=== PATIENT | male | born 1935 | race Caucasian/White ===

== ENCOUNTER 2017-02-19 15:09 | Inpatient (IN) | payer OTHER ==
--- NOTE | 2017-02-19 15:17 | PDOC ---
Rapid Medical Evaluation Chief Complaint: Shortness of Breath Time Seen by Provider: 02/19/17 15:13 Medical Evaluation: Allergies Allergy/AdvReac Type Severity Reaction Status Date / Time Penicillins Allergy Rash Verified 02/19/17 15:12 Vital Signs Temp Pulse Resp BP Pulse Ox 97.6 F 76 18 128/74 100 02/19/17 15:12 02/19/17 15:12 02/19/17 15:12 02/19/17 15:12 02/19/17 15:12 02/19/17 15:16 Pt presents to the ED: cough x 2 weeks , recent cxr right pleural effusion, not feeling better after abx Pt on brief exam:VSS, rll coarse breath sounds Pt ordered for: none Pt to proceed to the Emergency Dept Discharge Disposition - Diagnosis Cough - Referrals - Patient Instructions - Post Discharge Activity
--- NOTE | 2017-02-19 20:14 | PDOC ---
History of Present Illness - General History Source: Patient Exam Limitations: No Limitations - History of Present Illness Initial Comments: 02/19/17 20:45 The patient is an 81 year old male with a significant PMH of AFIB, COPD, past pleural effusion, tricuspid regurgitation, HTN, and Leukemia who presents to the emergency department with 2 weeks of worsening productive cough. The patient reports an onset of cough 2 weeks ago productive of occasional yellow sputum. He reports his cough has become more persistent since with more yellow sputum. The patient also notes associated shortness of breath only when he coughs. The patient reports receiving a CXR on 02/15 which showed small to moderate right pleural effusion of the right basilar region...interval resolution of a left pleural effusion. The patient reports being admitted last year for similar symptoms The patient denies chest pain, headache and dizziness. Denies fever, chills, nausea, vomit, diarrhea and constipation. Denies dysuria, frequency, urgency and hematuria. Allergies: Penicillins Past surgical history: None reported. Social history: Former smoker. No reported alcohol or drug use. PCP: Dr. Jeyson Ospina <Zay Upton - Last Filed: 02/19/17 21:37> - General History Source: Patient <JoshAustin massey - Last Filed: 02/19/17 21:43> - General Chief Complaint: Shortness of Breath Stated Complaint: CONGESTION Time Seen by Provider: 02/19/17 15:13 Past History <Zay Upton - Last Filed: 02/19/17 21:37> - Past Medical History Anemia: Yes Cancer: (CLL) Cardiac Disorders: Yes (A Fib) COPD: Yes CHF: No HTN: Yes - Surgical History Abdominal Surgery: Yes (hernia) - Suicide/Smoking/Psychosocial Hx Smoking Status: Yes Smoking History: Former smoker Have you smoked in the past 12 months: No Number of Cigarettes Smoked Daily: 0 Information on smoking cessation initiated: No Hx Alcohol Use: No Drug/Substance Use Hx: No Substance Use Type: None Hx Substance Use Treatment: No <Austin Rodriguez - Last Filed: 02/19/17 21:43> - Past Medical History Allergies/Adverse Reactions: Allergies Allergy/AdvReac Type Severity Reaction Status Date / Time Penicillins Allergy Rash Verified 02/19/17 15:12 Home Medications: Ambulatory Orders Sotalol HCl [Betapace -] 80 mg PO BID #60 tablet 09/11/15 Rivaroxaban [Xarelto -] 20 mg PO DAILY #10 tablet 09/13/15 Montelukast Na [Singulair -] 10 mg PO HS 10/17/15 Docusate Sodium [Colace -] 100 mg PO BID #180 capsule 10/28/15 Furosemide [Lasix -] 40 mg PO DAILY #90 tablet 10/28/15 Ramipril [Altace] 2.5 mg PO DAILY #90 capsule 10/28/15 Spironolactone [Aldactone -] 25 mg PO DAILY #90 tablet 10/28/15 Review of Systems - Review of Systems Able to Perform ROS?: Yes Comments:: 02/19/17 20:45 CONSTITUTIONAL: Absent: fever, chills, diaphoresis, generalized weakness, malaise, loss of appetite HEENT: Absent: rhinorrhea, nasal congestion, throat pain, throat swelling, difficulty swallowing, mouth swelling, ear pain, eye pain, visual Changes CARDIOVASCULAR: Absent: chest pain, syncope, palpitations, irregular heart rate, lightheadedness , peripheral edema RESPIRATORY: (+) Cough with productive yellow sputum. (+) Shortness of breath only with cough. Absent: dyspnea with exertion, orthopnea, wheezing, stridor, hemoptysis GASTROINTESTINAL: Absent: abdominal pain, abdominal distension, nausea, vomiting, diarrhea, constipation, melena, hematochezia GENITOURINARY: Absent: dysuria, frequency, urgency, hesitancy, hematuria, flank pain, genital pain MUSCULOSKELETAL: Absent: myalgia, arthralgia, joint swelling SKIN: Absent: rash, itching, pallor HEMATOLOGIC/IMMUNOLOGIC: Absent: easy bleeding, easy bruising, lymphadenopathy, frequent infections ENDOCRINE: Absent: unexplained weight gain, unexplained weight loss, heat intolerance, cold intolerance NEUROLOGIC: Absent: headache, focal weakness or paresthesias, dizziness, unsteady gait, seizure, mental status changes, bladder or bowel incontinence PSYCHIATRIC: Absent: anxiety, depression, suicidal or homicidal ideation, hallucinations. <Zay Upton - Last Filed: 02/19/17 21:37> *Physical Exam - Vital Signs Last Vital Signs Temp Pulse Resp BP Pulse Ox 97.6 F 76 18 128/74 100 02/19/17 15:12 02/19/17 15:12 02/19/17 15:12 02/19/17 15:12 02/19/17 15:12 - Physical Exam Comments: 02/19/17 20:46 GENERAL: Well developed, well nourished. Awake and alert. No acute distress. HEENT: Normocephalic, atraumatic. PERRLA, EOMI. No conjunctival pallor. Sclera are non- icteric. Moist mucous membranes. Oropharynx is clear. NECK: Supple. Full ROM. No JVD. Carotid pulses 2+ and symmetric, without bruits. No thyromegaly. No lymphadenopathy. CARDIOVASCULAR: Regular rate and rhythm. No murmurs, rubs, or gallops. Distal pulses are 2+ and symmetric. PULMONARY: (+) Decreased breath sounds bilaterally, more on right. No evidence of respiratory distress. Lungs clear to auscultation bilaterally. No wheezing, rales or rhonchi. ABDOMINAL: Soft. Non-tender. Non-distended. No rebound or guarding. No organomegaly. Normoactive bowel sounds. MUSCULOSKELETAL Normal range of motion at all joints. No bony deformities or tenderness. No CVA tenderness. EXTREMITIES: No cyanosis. No clubbing. No edema. No calf tenderness. SKIN: Warm and dry. Normal capillary refill. No rashes. No jaundice. NEUROLOGICAL: Alert, awake, appropriate. Cranial nerves 2-12 intact. No deficits to light touch and temperature in face, upper extremities and lower extremities. No motor deficits in the in face, upper extremities and lower extremities. Normoreflexic in the upper and lower extremities. Normal speech. Toes are down- going bilaterally. PSYCHIATRIC: Cooperative. Good eye contact. Appropriate mood and affect. <Zay Upton - Last Filed: 02/19/17 21:37> - Vital Signs Last Vital Signs Temp Pulse Resp BP Pulse Ox 97.6 F 76 18 128/74 100 02/19/17 15:12 02/19/17 15:12 02/19/17 15:12 02/19/17 15:12 02/19/17 15:12 <Austin Rodriguez - Last Filed: 02/19/17 21:43> ED Treatment Course - Consult/PCP Time Called: 21:35 Case discussed with personal care physician: Jeyson Ospina <Zay Upton - Last Filed: 02/19/17 21:37> Medical Decision Making - Medical Decision Making 02/19/17 21:41 Dr. Rodriguez: The scribe's documentation has been prepared under my direction and personally reviewed by me in its entirery. I confirm that the note above accurately reflects all work, treatment, procedures, and medical decision making performed by me. patient with Right-sided pleural effusion. Patient has been treated with ABx with no resolution. Pt to be admitted to [facility]. <Austin Rodriguez - Last Filed: 02/19/17 21:43> *DC/Admit/Observation/Transfer - Attestations Scribe Attestion: 02/19/17 20:46 Documentation prepared by Zay Upton, acting as mobile paramedical examiner for Austin Rodriguez DO. <Zay Upton - Last Filed: 02/19/17 21:37> - Discharge Dispostion Admit: Yes <Austin Rodriguez - Last Filed: 02/19/17 21:43> Diagnosis at time of Disposition: Cough, Pleural effusion, CLL (chronic lymphocytic leukemia) - Discharge Dispostion Condition at time of disposition: Stable - Referrals Referrals: Jeyson Ospina MD [Primary Care Provider] - - Patient Instructions - Post Discharge Activity
[2017-02-19 21:46] LABS: HEMATOCRIT 35.8 % (35.4-49); HEMOGLOBIN 11.6 GM/dL (11.7-16.9); MCH 31.7 pg (25.7-33.7); MCHC 32.5 g/dl (32.0-35.9); MEAN CELL VOLUME 97.4 fl (80-96); MEAN PLT VOLUME 7.2 fl (7.5-11.1); PLATELET COUNT 229 K/MM3 (134-434); RBC 3.68 M/mm3 (4.00-5.60); RDW 17.5 % (11.9-15.9); WHITE BLOOD COUNT 26.6 K/mm3 (4.0-10.0)
[2017-02-19 22:04] LABS: INR 1.48 (0.82-1.09); PROTHROMBIN TIME (PATIENT) 16.7 SEC (9.98-11.88)
[2017-02-19 22:05] LABS: ALBUMIN 3.4 g/dl (3.4-5.0); ANION GAP 9 (8-16); BILIRUBIN,TOTAL 0.6 mg/dL (0.2-1.0); BLOOD UREA NITROGEN 24 mg/dL (7-18); CALCIUM 8.9 mg/dL (8.5-10.1); CHLORIDE 104 mmol/L (98-107); CO2 27 mmol/L (21-32); CREATININE 0.7 mg/dL (0.7-1.3); GLUCOSE,RANDOM 85 mg/dL (74-106); MAGNESIUM 2.2 mg/dL (1.8-2.4); POTASSIUM 3.9 mmol/L (3.5-5.1); SGOT/AST 16 U/L (15-37); SGPT/ALT 16 U/L (12-78); SODIUM 140 mmol/L (136-145); TOT PROT 7.2 g/dl (6.4-8.2)
[2017-02-19 22:08] LABS: ALK PHOS 98 U/L (45-117); N-TERMINAL BNP 509.73 pg/ml (5-450)
[2017-02-19 22:14] LABS: PLATELET ESTIMATE ADEQUATE; SMUDGE CELLS 11
[2017-02-20 02:29] VITALS: BMI 21.0
[2017-02-20 08:39] LABS: ANION GAP 7 (8-16); BLOOD UREA NITROGEN 22 mg/dL (7-18); CALCIUM 8.5 mg/dL (8.5-10.1); CHLORIDE 105 mmol/L (98-107); CO2 27 mmol/L (21-32); CREATININE 0.6 mg/dL (0.7-1.3); GLUCOSE,RANDOM 90 mg/dL (74-106); POTASSIUM 4.1 mmol/L (3.5-5.1); SODIUM 139 mmol/L (136-145)
[2017-02-20 09:18] LABS: HEMOGLOBIN 11.3 GM/dL (11.7-16.9); MCH 31.4 pg (25.7-33.7); MCHC 32.2 g/dl (32.0-35.9); MEAN CELL VOLUME 97.4 fl (80-96); MEAN PLT VOLUME 7.7 fl (7.5-11.1); PLATELET COUNT 228 K/MM3 (134-434); RBC 3.59 M/mm3 (4.00-5.60); RDW 17.3 % (11.9-15.9); WHITE BLOOD COUNT 26.4 K/mm3 (4.0-10.0)
[2017-02-20] MEDS ORDERED: RIVAROXABAN 20 MG TABLET PO SCH (10:00)
[2017-02-20] MEDS: SOTALOL HCL 80 MG TABLET (FP) PO SCH (10:00)
[2017-02-20] MEDS ORDERED: PT OWN MED DRAWER 7, Y5N ONE ×2 (10:40→19:58)
[2017-02-20 11:45] LABS: URINE APPEARANCE SLCLOUDY; URINE BILIRUBIN NEGATIVE (NEGATIVE); URINE BLOOD 1+ (NEGATIVE); URINE COLOR DKYELLOW; URINE GLUCOSE (UA) NEGATIVE (NEGATIVE); URINE KETONE NEGATIVE (NEGATIVE); URINE LEUK ESTERASE NEGATIVE (NEGATIVE); URINE NITRITE NEGATIVE (NEGATIVE); URINE PROTEIN NEGATIVE (NEGATIVE); URINE UROBILINOGEN NEGATIVE mg/dL (0.2-1.0)
--- NOTE | 2017-02-20 13:06 | EKG ---
Test Reason : Blood Pressure : / mmHG Vent. Rate : 067 BPM Atrial Rate : 067 BPM P-R Int : 232 ms QRS Dur : 104 ms QT Int : 416 ms P-R-T Axes : 068 001 041 degrees QTc Int : 439 ms SINUS RHYTHM WITH 1ST DEGREE A-V BLOCK INCOMPLETE RIGHT BUNDLE BRANCH BLOCK SEPTAL INFARCT (CITED ON OR BEFORE 18-OCT-2015) ABNORMAL ECG WHEN COMPARED WITH ECG OF 18-OCT-2015 10:05, PREMATURE ATRIAL COMPLEXES ARE NO LONGER PRESENT T WAVE AMPLITUDE HAS INCREASED IN ANTEROLATERAL LEADS Confirmed by SELINA COTA, MATEUSZ ([id number]) on 02/20/2017 1:06:21 PM Referred By: Confirmed By:MATEUSZ MARKS MD
[2017-02-20 13:25] LABS: ANISOCYTOSIS 3+; MACROCYTOSIS 0; PLATELET ESTIMATE NORMAL
[2017-02-20] MEDS ORDERED: LEVOFLOXACIN 500 MG IVPB 500 MG/100 ML BAG IVPB ONE (13:45)
--- NOTE | 2017-02-20 13:52 | HP ---
Admitting History and Physical - Primary Care Physician PCP: Jeyson Ospina - Admission Chief Complaint: Cough History of Present Illness: Pt was seen last week in the office for productive cough and CHERRY, had CXR ( + for Pl. effusion); pt was started on PO Levaquin (500 mg daily). Pt yesterday morning starting to cough more and came to ER [facility] was admitted. History Source: Patient - Past Medical History Cardiovascular: Yes: AFIB (on AC), CHF Pulmonary: Yes: COPD. No: Asthma, O2 Dependent, Previously Intubated Heme/Onc: Yes: Cancer (CLL; per pt. latest WBC 60K) - Smoking History Smoking history: Former smoker Have you smoked in the past 12 months: No Aproximately how many cigarettes per day: 0 - Alcohol/Substance Use Hx Alcohol Use: No - Social History History of Recent Travel: No Home Medications - Allergies Allergies/Adverse Reactions: Allergies Allergy/AdvReac Type Severity Reaction Status Date / Time Penicillins Allergy Rash Verified 02/19/17 15:12 - Home Medications Home Medications: Ambulatory Orders Rivaroxaban [Xarelto -] 20 mg PO DAILY #10 tablet 09/13/15 Ramipril [Altace] 2.5 mg PO DAILY #90 capsule 10/28/15 Sotalol HCl [Betapace -] 80 mg PO DAILY 02/19/17 Review of Systems - Review of Systems Constitutional: denies: Chills, Fever Eyes: denies: Blurred Vision, Double Vision, Recent Change in Vision HENT: denies: Difficult Swallowing, Ear Discharge, Ear Pain, Nasal Congestion, Throat Pain Neck: denies: Stiffness, Swollen Glands, Tenderness Cardiovascular: denies: Chest Pain, Edema, Palpitations Respiratory: reports: Cough, SOB on Exertion. denies: Wheezing Gastrointestinal: denies: Abdominal Pain, Nausea, Vomiting Genitourinary: denies: Burning, Dysuria Musculoskeletal: denies: Back Pain, Joint Swelling Integumentary: denies: Bruising, Rash Neurological: denies: Change in LOC, Change in Speech, Numbness Endocrine: denies: Excessive Sweating, Intolerance to Cold Hematology/Lymphatic: denies: Easily Bruised, Excessive Bleeding Psychiatric: denies: Anxiety, Depression Physical Examination Vital Signs: Vital Signs Temperature 98.3 F 02/20/17 10:36 Pulse Rate 74 02/20/17 10:36 Respiratory Rate 19 02/20/17 10:36 Blood Pressure 105/53 02/20/17 10:36 O2 Sat by Pulse Oximetry (%) 100 02/20/17 09:00 Constitutional: Yes: No Distress, Calm Eyes: Yes: Conjunctiva Clear, EOM Intact, PERRL HENT: Yes: Normocephalic. No: Drooling, Pharyngeal Erythema, Rhinnorhea Neck: Yes: Trachea Midline. No: Lymphadenopathy Cardiovascular: Yes: Regular Rate and Rhythm, S1, S2 Respiratory: Yes: Regular, Other (decrease BS at right base and 1/3 up) Gastrointestinal: Yes: Normal Bowel Sounds, Soft. No: Tenderness ...Rectal Exam: Yes: Deferred Renal/: No: CVA Tenderness - Left, CVA Tenderness - Right Edema: No Integumentary: No: Bruising, Erythema Neurological: Yes: Alert, Oriented, Other (motor and sensory intact in UE/ LE/ face) Psychiatric: Yes: Alert, Oriented Labs: CBC, BMP 02/20/17 07:45 02/20/17 07:45 Imaging - Results Chest X-ray: Report Reviewed Cat Scan: Report Reviewed Problem List - Problems (1) Pneumonia Code(s): J18.9 - PNEUMONIA, UNSPECIFIED ORGANISM (2) Pleural effusion Code(s): J90 - PLEURAL EFFUSION, NOT ELSEWHERE CLASSIFIED (3) Atrial fibrillation Code(s): I48.91 - UNSPECIFIED ATRIAL FIBRILLATION Assessment/Plan Chest CT scan: + Pl effusion, + consolidation, + chestLA Pulmonary Consult; case was d/w Dr. Contreras; needs thoracentesis; to stop Xarelto ; add Heparin IV in AM ID consult IV abtx OOB as tolerated
--- NOTE | 2017-02-20 14:01 | PN ---
Progress Note (short form) - Note Progress Note: PULMONARY CONSULTATION DICTATED 02/20/17 IMP RLL CONSOLIDATION/EFFUSION ?PNEUMONIA R PLEURAL EFFUSION CLL AFIB ASHD HTN PLAN ANTIBIOTICS CULTURES DIAGNOSTIC THORACENTESIS ANTI-TUSSIVES DR MANRIQUEZ Problem List - Problems (1) Atrial fibrillation Code(s): I48.91 - UNSPECIFIED ATRIAL FIBRILLATION (2) CLL (chronic lymphocytic leukemia) Code(s): C91.10 - CHRONIC LYMPHOCYTIC LEUK OF B-CELL TYPE NOT ACHIEVE REMIS (3) Cough Code(s): R05 - COUGH (4) Anemia Code(s): D64.9 - ANEMIA, UNSPECIFIED (5) Lymphocytic leukemia Code(s): C91.90 - LYMPHOID LEUKEMIA, UNSPECIFIED NOT HAVING ACHIEVED REMISSION (6) SOB (shortness of breath) Code(s): R06.02 - SHORTNESS OF BREATH (7) Tricuspid regurgitation Code(s): I07.1 - RHEUMATIC TRICUSPID INSUFFICIENCY Qualifiers: Cardiac valve disease etiology: nonrheumatic Qualified Code(s): I36.1 - Nonrheumatic tricuspid (valve) insufficiency
[2017-02-20 14:05] LABS: CALCIUM OXALATE CRYSTALS RARE /hpf (NONE SEEN); EPI CELLS RARE /HPF (FEW); URINE MUCUS RARE
--- NOTE | 2017-02-20 17:09 | CONS ---
DATE OF CONSULTATION: 02/20/2017 REFERRING PHYSICIAN: Jeyson Ospina MD The patient is an 81-year-old white male, past medical of atrial fibrillation, COPD, history of pleural effusion, tricuspid regurgitation, hypertension, leukemia chronic lymphocytic, not on any medication, admitted to [facility] with complaint of 2-week history of increasing cough productive of yellow sputum. The patient states he developed a cough a couple of weeks ago. At the time, he was placed on Levaquin. Despite these measures, he started developing increasing shortness of breath as well as coughing. Chest x-ray performed February 15, which shows small to moderate right pleural effusion. He was advised hospitalization but did not want to be hospitalized secondary to the [place] holiday. He was admitted yesterday with the above complaints. He denies any fevers, chills, nausea, vomiting, diaphoresis. Denies hemoptysis. 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 Denies orthopnea or PND. Past medical history, again, includes hypertension, atrial fibrillation, COPD, pleural effusion, tricuspid regurgitation, hypertension, and chronic lymphocytic leukemia. REVIEW OF SYSTEMS: No orthopnea, no PND. Positive cough, positive mild shortness of breath. No chest pain, no palpitation, no fevers, no chills, no hemoptysis, no abdominal pain. Medications prior to admission include Betapace, Xarelto, Singulair, Colace, Lasix, Aldactone, and Altace. Current medications include Betapace, Xarelto, and Levaquin. PHYSICAL EXAMINATION: General: The patient is a thin white male, awake, alert, in no acute distress. Vital Signs: He is afebrile. Blood pressure 105/53. Respiratory rate is 19. O2 saturation is 100% on room air. HEENT: Normocephalic, atraumatic. Neck: Supple. Heart: Irregular. Normal S1, S2. Chest: Diminished breath sounds on the right, one-third up. Abdomen: Soft. Bowel sounds positive. Extremities: No cyanosis, edema. LABORATORY DATA: WBC 26.4, hemoglobin 11.3, hematocrit 35, platelet count of 228,000, INR is 1.48. BUN 22, creatinine 0.6. Chest CT: Borderline lymphadenopathy, mediastinal adenopathy. There is a right lower lobe consolidation, atelectasis, and small to moderate right pleural effusion. IMPRESSION: 1. Cough, chest congestion, rule out possible pneumonia. 2. Right pleural effusion, etiology to be determined. Rule out possible parapneumonic effusion, rule out possible malignant effusion. 3. Chronic lymphocytic leukemia. 4. Atrial fibrillation. 5. Hypertension. PLAN: Continue antibiotic therapy. Cultures. Schedule for thoracentesis with ultrasound guidance. Hold Xarelto. Further recommendations to follow, following thoracentesis. JUAN A MANRIQUEZ M.D. [facility]SE/[id number]
--- NOTE | 2017-02-20 18:27 | PN ---
Progress Note (short form) - Note Progress Note: ID consult dictated imp/reccd 81 year old man PMH CLL admitted from home with cough and pneumonia he has been coughing for about 10 days started levaquin last week now day #4 persistent cough, no hemoptysis now productive no fevers no nausea or vomiting no travel UTD with vaccines he looks well chest CT with RLL consolidation /atelectasis and right effusion anc over 5000 pen allergy rash as a child RLL pneumonia with effusion- for thoracentesis pen allergy start rocephin check legionella/pneumococcal antigen sputum culture f/u blood cultures history of CLL Problem List - Problems (1) Pneumonia Code(s): J18.9 - PNEUMONIA, UNSPECIFIED ORGANISM (2) Pleural effusion Code(s): J90 - PLEURAL EFFUSION, NOT ELSEWHERE CLASSIFIED (3) CLL (chronic lymphocytic leukemia) Code(s): C91.10 - CHRONIC LYMPHOCYTIC LEUK OF B-CELL TYPE NOT ACHIEVE REMIS (4) Penicillin allergy Code(s): Z88.0 - ALLERGY STATUS TO PENICILLIN
--- NOTE | 2017-02-20 19:35 | CONS ---
INFECTIOUS DISEASE CONSULTATION DATE OF CONSULTATION: DATE OF DICTATION: 02/20/2017 REQUESTING PHYSICIAN: Jeyson Ospina MD HISTORY OF PRESENT ILLNESS: This is an 81-year-old man with CLL. He has a history of persistent atrial fibrillation, hypertension, hyperlipidemia. He reports he has had pleural effusions in the past. About 10 days ago, he started having a cough. He had no fevers or chills. He saw Dr. Ospina and was started on Levaquin which he has taken for 4 days. Yesterday, he noted the cough became more productive of some yellowish sputum. There is no hemoptysis. He grew concerned and came to the ER. He is not short of breath. He has had no fever. He does report he has had bilateral pleural effusions in the past, about a year ago. PAST MEDICAL HISTORY: Notable for CLL. He has a history of atrial fibrillation, CHF, and COPD. ALLERGIES: He is allergic to PENICILLIN which is manifested as a rash on his arm as a child. MEDICATIONS AT HOME: Include Xarelto, Ramipril, and sotalol. SOCIAL HISTORY: He is a former smoker. He stopped 40 years ago. No history of any substance use. He lives alone. He had no workplace exposures for any COPD. There is no history of any recent travel or sick contacts. He reports being up to date on his vaccines. REVIEW OF SYSTEMS: He has no sore throat. There have been no fevers or chills. He has had no nausea, vomiting, diarrhea, or dysuria. PHYSICAL EXAMINATION: General: He is awake and alert. Vital Signs: Temperature is 98.1, pulse of 73, blood pressure 104/52, respiratory rate is 20. He is saturating 100% on room air. HEENT: He is normocephalic. His eyes are anicteric. Neck: Supple. Lungs: Diminished breath sounds at the right base. Heart: Regular rate and rhythm. Abdomen: Soft, nontender. Skin: He has no skin rash. He has no adenopathy. DIAGNOSTIC DATA: His white count is 26.4. ANC of over 5000, 5808. Hemoglobin 11.8. Platelets are 228. His BUN and creatinine are normal, 7 and 0.6. LFTs are normal as well. Urinalysis is negative. CAT scan of the chest reveals a right lower lobe consolidation, atelectasis with an accompanying right effusion. In summary, this is a well-appearing, 81-year-old man with chronic lymphocytic leukemia, admitted with: 1. A right lower lobe pneumonia with effusion, for thoracentesis tomorrow. PENICILLIN allergy manifested by rash. He has been on Levaquin for 4 days. Suggest we switch to ceftriaxone to cover for pneumococcus. He does not appear ill enough to have staphylococcus pneumonia. Would check a legionella and pneumococcal antigen, sputum cultures. Follow up his blood cultures. He has been scheduled by Pulmonary for a thoracentesis in the morning. 2. History of chronic lymphocytic leukemia. ANC of greater than 5000. Margarita [id number]
[2017-02-21 08:01] LABS: HEMATOCRIT 36.2 % (35.4-49); HEMOGLOBIN 11.6 GM/dL (11.7-16.9); MCH 31.1 pg (25.7-33.7); MCHC 32.1 g/dl (32.0-35.9); MEAN PLT VOLUME 7.3 fl (7.5-11.1); PLATELET COUNT 223 K/MM3 (134-434); RBC 3.74 M/mm3 (4.00-5.60); RDW 17.4 % (11.9-15.9); WHITE BLOOD COUNT 22.3 K/mm3 (4.0-10.0)
[2017-02-21 08:33] LABS: CHLORIDE 106 mmol/L (98-107); POTASSIUM 4.3 mmol/L (3.5-5.1); SODIUM 140 mmol/L (136-145)
[2017-02-21 08:37] LABS: ANION GAP 6 (8-16); BLOOD UREA NITROGEN 26 mg/dL (7-18); CALCIUM 8.4 mg/dL (8.5-10.1); CO2 28 mmol/L (21-32); CREATININE 0.6 mg/dL (0.7-1.3); GLUCOSE,RANDOM 88 mg/dL (74-106)
[2017-02-21] MEDS ORDERED: cefTRIAXone 1 GM/50 ML BAG (PRE-DOCKED) IVPB SCH (10:00)
[2017-02-21] MEDS ORDERED: PT OWN MED DRAWER 7, Y5N ONE (10:09)
[2017-02-21] MEDS: SOTALOL HCL 80 MG TABLET (FP) PO SCH (10:20)
[2017-02-21] MEDS: CEFTRIAXONE 1 G/50 ML PREMIX 50 ML IVPB SCH (10:21)
--- NOTE | 2017-02-21 14:09 | PN ---
Progress Note (short form) - Note Progress Note: awaiting thoracentesis less cough no chest pain no fever Vital Signs Period Temp Pulse Resp BP Sys/Marcum Pulse Ox Last 24 Hr 97 F-98.5 F 73-87 18-20 104-133/46-65 cor-rrr lungs decreased bs right base (improved from yesterday) abd soft,nt ext no edema CBC, BMP 02/21/17 06:24 02/21/17 06:24 Microbiology 02/19/17 21:40 Blood Culture - Preliminary Blood - Peripheral Venous NO GROWTH OBTAINED AFTER 24 HOURS, INCUBATION TO CONTINUE FOR 4 DAYS. 02/19/17 21:40 Blood Culture - Preliminary Blood - Peripheral Venous NO GROWTH OBTAINED AFTER 24 HOURS, INCUBATION TO CONTINUE FOR 4 DAYS. a/p 81 year old man PMH CLL admitted from home with cough and pneumonia RLL pneumonia with effusion- for thoracentesis pen allergy, s/p levaquin for 4 days now rocephin day #1 check legionella/pneumococcal antigen sputum culture f/u blood cultures history of CLL Problem List - Problems (1) Pneumonia Code(s): J18.9 - PNEUMONIA, UNSPECIFIED ORGANISM (2) Pleural effusion Code(s): J90 - PLEURAL EFFUSION, NOT ELSEWHERE CLASSIFIED (3) CLL (chronic lymphocytic leukemia) Code(s): C91.10 - CHRONIC LYMPHOCYTIC LEUK OF B-CELL TYPE NOT ACHIEVE REMIS (4) Penicillin allergy Code(s): Z88.0 - ALLERGY STATUS TO PENICILLIN
--- NOTE | 2017-02-21 16:05 | PN ---
Progress Note, Physician History of Present Illness: PULMONARY ALERT,AMBULATING,LESS COUGH,LESS DYSPNEIC - Current Medication List Current Medications: Active Medications CEFTRIAXONE 1 G/50 ML PREMIX (Ceftriaxone 1 Gm-D5w Bag) 50 mls @ 100 mls/hr IVPB DAILY [facility] Last Admin: 02/21/17 10:21 Dose: 100 mls/hr Sotalol HCl (Betapace -) 80 mg PO DAILY [facility] Last Admin: 02/21/17 10:20 Dose: 80 mg - Objective Vital Signs: Vital Signs Temperature 97 F L 02/21/17 10:00 Pulse Rate 87 02/21/17 10:00 Respiratory Rate 18 02/21/17 10:00 Blood Pressure 133/65 02/21/17 10:00 O2 Sat by Pulse Oximetry (%) 100 02/20/17 09:00 Constitutional: Yes: Well Nourished, Calm Eyes: Yes: WNL HENT: Yes: WNL Neck: Yes: WNL Cardiovascular: Yes: Pulse Irregular, S1, S2 Respiratory: Yes: Diminished Gastrointestinal: Yes: Normal Bowel Sounds, Soft Labs: CBC, BMP 02/21/17 06:24 02/21/17 06:24 INR, PTT INR 1.48 (0.82-1.09) H 02/19/17 21:35 Problem List - Problems (1) Atrial fibrillation Code(s): I48.91 - UNSPECIFIED ATRIAL FIBRILLATION (2) CLL (chronic lymphocytic leukemia) Code(s): C91.10 - CHRONIC LYMPHOCYTIC LEUK OF B-CELL TYPE NOT ACHIEVE REMIS (3) Cough Code(s): R05 - COUGH (4) Anemia Code(s): D64.9 - ANEMIA, UNSPECIFIED (5) Lymphocytic leukemia Code(s): C91.90 - LYMPHOID LEUKEMIA, UNSPECIFIED NOT HAVING ACHIEVED REMISSION (6) SOB (shortness of breath) Code(s): R06.02 - SHORTNESS OF BREATH (7) Tricuspid regurgitation Code(s): I07.1 - RHEUMATIC TRICUSPID INSUFFICIENCY Qualifiers: Cardiac valve disease etiology: nonrheumatic Qualified Code(s): I36.1 - Nonrheumatic tricuspid (valve) insufficiency Assessment/Plan IMP RLL CONSOLIDATION/EFFUSION ?PNEUMONIA R PLEURAL EFFUSION CLL AFIB ASHD HTN PLAN ANTIBIOTICS CULTURES DIAGNOSTIC THORACENTESIS IN AM ANTI-TUSSIVES DR MANRIQUEZ Problem List - Problems (1) Atrial fibrillation Code(s): I48.91 - UNSPECIFIED ATRIAL FIBRILLATION (2) CLL (chronic lymphocytic leukemia) Code(s): C91.10 - CHRONIC LYMPHOCYTIC LEUK OF B-CELL TYPE NOT ACHIEVE REMIS (3) Cough Code(s): R05 - COUGH (4) Anemia Code(s): D64.9 - ANEMIA, UNSPECIFIED (5) Lymphocytic leukemia Code(s): C91.90 - LYMPHOID LEUKEMIA, UNSPECIFIED NOT HAVING ACHIEVED REMISSION (6) SOB (shortness of breath) Code(s): R06.02 - SHORTNESS OF BREATH (7) Tricuspid regurgitation Code(s): I07.1 - RHEUMATIC TRICUSPID INSUFFICIENCY Qualifiers: Cardiac valve disease etiology: nonrheumatic Qualified Code(s): I36.1 - Nonrheumatic tricuspid (valve) insufficiency
[2017-02-21] MEDS ORDERED: HEPARIN NA (PORCINE) 5,000 UNITS/ML 1ML VIAL IVPUSH PRN ×2 (16:07)
[2017-02-21] MEDS: HEPARIN SOD,PORK IN 0.45% NACL 25,000 UNIT/500 ML INFUS.BAG IVPB SCH (17:52)
--- NOTE | 2017-02-21 21:33 | PN ---
Progress Note, Physician History of Present Illness: Pt with improvement in cough; pt w/o CP, palp, abd pain, diarrhea. - Current Medication List Current Medications: Active Medications Heparin Sodium (Porcine) (Heparin -) 1,000 unit IVPUSH PRN PRN PRN Reason: Heparin Heparin Sodium (Porcine) (Heparin -) 5,000 unit IVPUSH PRN PRN PRN Reason: Heparin CEFTRIAXONE 1 G/50 ML PREMIX (Ceftriaxone 1 Gm-D5w Bag) 50 mls @ 100 mls/hr IVPB DAILY RAMONE Last Admin: 02/21/17 10:21 Dose: 100 mls/hr HEPARIN SOD,PORK IN 0.45% NACL (Heparin-1/2ns 25,000 Units/500) 25,000 unit in 500 mls @ 16 mls/hr IVPB TITR RAMONE; 800 UNITS/HR PRN Reason: Protocol Last Admin: 02/21/17 17:52 Dose: 800 units/hr, 16 mls/hr Sotalol HCl (Betapace -) 80 mg PO DAILY RAMONE Last Admin: 02/21/17 10:20 Dose: 80 mg - Objective Vital Signs: Vital Signs Temperature 98.3 F 02/21/17 19:00 Pulse Rate 72 02/21/17 19:00 Respiratory Rate 18 02/21/17 19:00 Blood Pressure 114/55 02/21/17 19:00 O2 Sat by Pulse Oximetry (%) 98 02/21/17 09:00 Constitutional: Yes: No Distress, Calm Cardiovascular: Yes: Regular Rate and Rhythm, S1, S2 Respiratory: Yes: Regular, Other (decreased BS at R bases and 1/3 up) Gastrointestinal: Yes: Normal Bowel Sounds, Soft. No: Tenderness Edema: No Neurological: Yes: Alert, Oriented Labs: CBC, BMP 02/21/17 06:24 02/21/17 06:24 INR, PTT INR 1.48 (0.82-1.09) H 02/19/17 21:35 Problem List - Problems (1) Pneumonia Code(s): J18.9 - PNEUMONIA, UNSPECIFIED ORGANISM (2) Pleural effusion Code(s): J90 - PLEURAL EFFUSION, NOT ELSEWHERE CLASSIFIED (3) Atrial fibrillation Code(s): I48.91 - UNSPECIFIED ATRIAL FIBRILLATION (4) CLL (chronic lymphocytic leukemia) Code(s): C91.10 - CHRONIC LYMPHOCYTIC LEUK OF B-CELL TYPE NOT ACHIEVE REMIS (5) Penicillin allergy Code(s): Z88.0 - ALLERGY STATUS TO PENICILLIN Assessment/Plan Chest CT scan: + Pl effusion, + consolidation, + chestLA Pulmonary Consult and ID consult : appreciated IV abtx (Ceftriaxone) For thoracentasis in AM OOB as tolerated. Case was d/w pt's nurse.
[2017-02-22] MEDS: HEPARIN SOD,PORK IN 0.45% NACL 25,000 UNIT/500 ML INFUS.BAG IVPB SCH ×2 (02:03→21:35)
[2017-02-22] MEDS ORDERED: PT OWN MED DRAWER 7, Y5N ONE (09:37)
[2017-02-22 09:46] LABS: ALBUMIN 3.2 g/dl (3.4-5.0); ALK PHOS 99 U/L (45-117); ANION GAP 8 (8-16); BILIRUBIN,TOTAL 0.4 mg/dL (0.2-1.0); BLOOD UREA NITROGEN 22 mg/dL (7-18); CALCIUM 8.1 mg/dL (8.5-10.1); CHLORIDE 107 mmol/L (98-107); CO2 25 mmol/L (21-32); CREATININE 0.6 mg/dL (0.7-1.3); GLUCOSE,RANDOM 91 mg/dL (74-106); SGOT/AST 15 U/L (15-37); SGPT/ALT 16 U/L (12-78); SODIUM 140 mmol/L (136-145); TOT PROT 6.8 g/dl (6.4-8.2)
[2017-02-22] MEDS: CEFTRIAXONE 1 G/50 ML PREMIX 50 ML IVPB SCH (10:03)
[2017-02-22 10:19] LABS: INR 1.18 (0.82-1.09); PROTHROMBIN TIME (PATIENT) 13.3 SEC (9.98-11.88)
--- NOTE | 2017-02-22 11:21 | PN ---
Progress Note (short form) - Note Progress Note: PULMONARY VSS/AFEBRILE COUGH WITH INTERMITTENT SPUTUM ANICTERIC DULLNESS/DECREASED BREATH SOUNDS RIGHT BASE S1S2 BS+ NO EDEMA LABS/IMAGES/MEDS/MICRO/NOTES REVIEWED IMP RLL CONSOLIDATION/EFFUSION ?PNEUMONIA R PLEURAL EFFUSION ? RELATED TO CLL CLL AFIB ASHD HTN PLAN ANTIBIOTICS CULTURES DIAGNOSTIC THORACENTESIS TODAY ANTI-TUSSIVES PRN Alyx LEVY MD
--- NOTE | 2017-02-22 11:30 | PN ---
Progress Note (short form) - Note Progress Note: awaiting thoracentesis this am less cough no chest pain no fever overall feels better Vital Signs Period Temp Pulse Resp BP Sys/Marcum Pulse Ox Last 24 Hr 97.5 F-98.7 F 67-88 18-18 104-138/54-72 98 cor-rrr lungs decreased bs on the right (base) abd- soft,nt ext no edema CBC, BMP 02/21/17 06:24 02/22/17 08:11 Microbiology 02/19/17 21:40 Blood - Peripheral Venous Blood Culture - Preliminary NO GROWTH OBTAINED AFTER 48 HOURS, INCUBATION TO CONTINUE FOR 3 DAYS. 02/19/17 21:40 Blood - Peripheral Venous Blood Culture - Preliminary NO GROWTH OBTAINED AFTER 48 HOURS, INCUBATION TO CONTINUE FOR 3 DAYS. 02/20/17 19:45 Urine For Antigen Detection Legionella Antigen - Final 02/20/17 19:45 Urine For Antigen Detection Streptococcus pneumoniae Antigen (M - Final a/p 81 year old man PMH CLL admitted from home with cough and pneumonia RLL pneumonia with effusion- for thoracentesis pen allergy, s/p levaquin for 4 days now rocephin day #2 legionella/pneumococcal antigen negative sputum culture pending blood cultures negative history of CLL Problem List - Problems (1) Pneumonia Code(s): J18.9 - PNEUMONIA, UNSPECIFIED ORGANISM (2) Pleural effusion Code(s): J90 - PLEURAL EFFUSION, NOT ELSEWHERE CLASSIFIED (3) CLL (chronic lymphocytic leukemia) Code(s): C91.10 - CHRONIC LYMPHOCYTIC LEUK OF B-CELL TYPE NOT ACHIEVE REMIS (4) Penicillin allergy Code(s): Z88.0 - ALLERGY STATUS TO PENICILLIN
[2017-02-22] MEDS: SOTALOL HCL 80 MG TABLET (FP) PO SCH (11:44)
[2017-02-22 18:21] LABS: PLEURAL FLUID COLOR RED
[2017-02-22 18:22] LABS: PLEURAL FLUID APPEARANCE TURBID; PLEURAL FLUID RBC 19462 /mm3
--- NOTE | 2017-02-22 19:23 | PN ---
Progress Note, Physician History of Present Illness: Pt with improvement in cough. Pt w/o CP, palp, abd pain, diarrhea. - Current Medication List Current Medications: Active Medications Heparin Sodium (Porcine) (Heparin -) 1,000 unit IVPUSH PRN PRN PRN Reason: Heparin Heparin Sodium (Porcine) (Heparin -) 5,000 unit IVPUSH PRN PRN PRN Reason: Heparin Last Admin: 02/22/17 02:02 Dose: 5,000 unit CEFTRIAXONE 1 G/50 ML PREMIX (Ceftriaxone 1 Gm-D5w Bag) 50 mls @ 100 mls/hr IVPB DAILY RAMONE Last Admin: 02/22/17 10:03 Dose: 100 mls/hr HEPARIN SOD,PORK IN 0.45% NACL (Heparin-1/2ns 25,000 Units/500) 25,000 unit in 500 mls @ 16 mls/hr IVPB TITR RAMONE; 800 UNITS/HR PRN Reason: Protocol Last Admin: 02/22/17 02:03 Dose: 950 units/hr, 19 mls/hr Sotalol HCl (Betapace -) 80 mg PO DAILY RAMONE Last Admin: 02/22/17 11:44 Dose: 80 mg - Objective Vital Signs: Vital Signs Temperature 98.6 F 02/22/17 15:35 Pulse Rate 74 02/22/17 15:35 Respiratory Rate 18 02/22/17 15:35 Blood Pressure 122/59 02/22/17 15:35 O2 Sat by Pulse Oximetry (%) 98 02/21/17 21:00 Constitutional: Yes: No Distress, Calm Cardiovascular: Yes: Regular Rate and Rhythm, S1, S2 Respiratory: Yes: Regular, Rhonchi (minimal, right base), Other (decreased BS at right base; s/p thoracentesis) Gastrointestinal: Yes: Normal Bowel Sounds, Soft. No: Tenderness Edema: No Neurological: Yes: Alert, Oriented Labs: CBC, BMP 02/21/17 06:24 02/22/17 08:11 INR, PTT INR 1.18 (0.82-1.09) H 02/22/17 09:15 Problem List - Problems (1) Pneumonia Code(s): J18.9 - PNEUMONIA, UNSPECIFIED ORGANISM (2) Pleural effusion Code(s): J90 - PLEURAL EFFUSION, NOT ELSEWHERE CLASSIFIED (3) Atrial fibrillation Code(s): I48.91 - UNSPECIFIED ATRIAL FIBRILLATION (4) CLL (chronic lymphocytic leukemia) Code(s): C91.10 - CHRONIC LYMPHOCYTIC LEUK OF B-CELL TYPE NOT ACHIEVE REMIS (5) Penicillin allergy Code(s): Z88.0 - ALLERGY STATUS TO PENICILLIN (6) S/P thoracentesis Code(s): Z98.890 - OTHER SPECIFIED POSTPROCEDURAL STATES Assessment/Plan Chest CT scan: + Pl effusion, + consolidation, + chest LA. Pulmonary Consult and ID consult : appreciated IV abtx (Ceftriaxone) s/p thoracentasis today. OOB as tolerated. To restart Heparin dri[p tonight, no bolus. Case was d/w pt's nurse.
[2017-02-22] MEDS ORDERED: HEPARIN NA (PORCINE) 5,000 UNITS/ML 1ML VIAL IVPUSH PRN ×2 (19:26)
[2017-02-22 20:26] LABS: GLUCOSE,PLEURAL FLUID 84.397; TOTAL PROTEIN,PLEURAL FLUID 4.285
[2017-02-22 22:17] LABS: PLEURAL FLUID LYMPHOCYTES 94 %; PLEURAL FLUID NEUTROPHIL 0 %
[2017-02-22 22:18] LABS: PLEURAL FLUID MACROPHAGES 4 %; PLEURAL FLUID MESOTHELIAL 0 %; PLEURAL FLUID MONOCYTE 4 %
[2017-02-23] MEDS: HEPARIN SOD,PORK IN 0.45% NACL 25,000 UNIT/500 ML INFUS.BAG IVPB SCH ×2 (04:54→21:21)
[2017-02-23 08:37] LABS: HEMATOCRIT 34.6 % (35.4-49); MCH 31.2 pg (25.7-33.7); MEAN CELL VOLUME 97.5 fl (80-96); PLATELET COUNT 195 K/MM3 (134-434); RBC 3.55 M/mm3 (4.00-5.60); RDW 17.1 % (11.9-15.9); WHITE BLOOD COUNT 26.8 K/mm3 (4.0-10.0)
[2017-02-23 09:26] LABS: ALBUMIN 2.9 g/dl (3.4-5.0); ANION GAP 7 (8-16); BILIRUBIN,TOTAL 0.4 mg/dL (0.2-1.0); BLOOD UREA NITROGEN 19 mg/dL (7-18); CALCIUM 7.9 mg/dL (8.5-10.1); CHLORIDE 107 mmol/L (98-107); CO2 25 mmol/L (21-32); CREATININE 0.6 mg/dL (0.7-1.3); GLUCOSE,RANDOM 86 mg/dL (74-106); POTASSIUM 4.1 mmol/L (3.5-5.1); SGOT/AST 14 U/L (15-37); SGPT/ALT 13 U/L (12-78); SODIUM 139 mmol/L (136-145); TOT PROT 6.2 g/dl (6.4-8.2)
[2017-02-23 09:27] LABS: ALK PHOS 90 U/L (45-117)
--- NOTE | 2017-02-23 11:45 | PN ---
Progress Note (short form) - Note Progress Note: PULMONARY VSS/AFEBRILE COUGH WITH INTERMITTENT SPUTUM CONTINUES ANICTERIC DULLNESS/DECREASED BREATH SOUNDS RIGHT BASE S1S2 BS+ NO EDEMA LABS/IMAGES/MEDS/MICRO/NOTES REVIEWED EXUDATIVE CHARACTERISTICS PLEURAL FLUID IMP RLL CONSOLIDATION/EFFUSION ?PNEUMONIA R PLEURAL EFFUSION ? RELATED TO CLL CLL AFIB ASHD HTN PLAN ANTIBIOTICS PER PMD SINUS XRAY ANTI-TUSSIVES PRN RESTART ELIQUIS DISCHARGE PLANNING Alyx LEVY MD
[2017-02-23] MEDS ORDERED: PT OWN MED DRAWER 7, Y5N ONE (12:02)
[2017-02-23] MEDS: SOTALOL HCL 80 MG TABLET (FP) PO SCH (12:10)
[2017-02-23] MEDS: CEFTRIAXONE 1 G/50 ML PREMIX 50 ML IVPB SCH (12:10)
--- NOTE | 2017-02-23 12:52 | PN ---
Progress Note (short form) - Note Progress Note: s/p thoracentesis- no complaints, still with cough Vital Signs Period Temp Pulse Resp BP Sys/Marcum Pulse Ox Last 24 Hr 97.4 F-98.6 F 67-74 18-20 106-132/52-60 98 cor-rrr lungs decreased bs on the right abd soft,nt ext no edema CBC, BMP 02/23/17 07:30 02/23/17 07:30 Microbiology 02/20/17 19:45 Sputum - Expectorated Gram Stain - Final 02/20/17 19:45 Sputum - Expectorated Sputum Culture - Preliminary NORMAL RESPIRATORY MERCED 02/19/17 21:40 Blood - Peripheral Venous Blood Culture - Preliminary NO GROWTH OBTAINED AFTER 72 HOURS, INCUBATION TO CONTINUE FOR 2 DAYS. 02/19/17 21:40 Blood - Peripheral Venous Blood Culture - Preliminary NO GROWTH OBTAINED AFTER 72 HOURS, INCUBATION TO CONTINUE FOR 2 DAYS. 02/20/17 19:45 Urine For Antigen Detection Legionella Antigen - Final 02/20/17 19:45 Urine For Antigen Detection Streptococcus pneumoniae Antigen (M - Final a/p 81 year old man PMH CLL admitted from home with cough and pneumonia RLL pneumonia with effusion-lymphocytic predominance, will get serum ldh, ? secondary to CLL pen allergy, s/p levaquin for 4 days now rocephin day #3 history of CLL Problem List - Problems (1) Pneumonia Code(s): J18.9 - PNEUMONIA, UNSPECIFIED ORGANISM (2) Pleural effusion Code(s): J90 - PLEURAL EFFUSION, NOT ELSEWHERE CLASSIFIED (3) CLL (chronic lymphocytic leukemia) Code(s): C91.10 - CHRONIC LYMPHOCYTIC LEUK OF B-CELL TYPE NOT ACHIEVE REMIS (4) Penicillin allergy Code(s): Z88.0 - ALLERGY STATUS TO PENICILLIN
[2017-02-23 13:24] LABS: LDH 227 U/L (87-241)
--- NOTE | 2017-02-23 16:27 | PN ---
Progress Note, Physician History of Present Illness: Pt with improvement in cough, no blood in sputum Pt w/o CP, palp, abd pain, diarrhea. - Current Medication List Current Medications: Active Medications Heparin Sodium (Porcine) (Heparin -) 1,000 unit IVPUSH PRN PRN PRN Reason: Heparin Heparin Sodium (Porcine) (Heparin -) 5,000 unit IVPUSH PRN PRN PRN Reason: Heparin Last Admin: 02/23/17 04:54 Dose: 5,000 unit CEFTRIAXONE 1 G/50 ML PREMIX (Ceftriaxone 1 Gm-D5w Bag) 50 mls @ 100 mls/hr IVPB DAILY RAMONE Last Admin: 02/23/17 12:10 Dose: 100 mls/hr HEPARIN SOD,PORK IN 0.45% NACL (Heparin-1/2ns 25,000 Units/500) 25,000 unit in 500 mls @ 19 mls/hr IVPB TITR RAMONE; 950 UNITS/HR PRN Reason: Protocol Last Admin: 02/23/17 04:54 Dose: 1,100 units/hr, 22 mls/hr Sotalol HCl (Betapace -) 80 mg PO DAILY RAMONE Last Admin: 02/23/17 12:10 Dose: 80 mg - Objective Vital Signs: Vital Signs Temperature 99.0 F 02/23/17 15:47 Pulse Rate 77 02/23/17 15:47 Respiratory Rate 20 02/23/17 15:47 Blood Pressure 113/59 02/23/17 15:47 O2 Sat by Pulse Oximetry (%) 100 02/23/17 09:00 Constitutional: Yes: No Distress, Calm Cardiovascular: Yes: Regular Rate and Rhythm, S1, S2 Respiratory: Yes: Regular, Other (coarse BS, bilat, marcia, decreased BS at right base) Gastrointestinal: Yes: Normal Bowel Sounds, Soft. No: Tenderness Edema: No Neurological: Yes: Alert, Oriented Labs: CBC, BMP 02/23/17 07:30 02/23/17 07:30 INR, PTT INR 1.18 (0.82-1.09) H 02/22/17 09:15 Problem List - Problems (1) Pneumonia Code(s): J18.9 - PNEUMONIA, UNSPECIFIED ORGANISM (2) Pleural effusion Code(s): J90 - PLEURAL EFFUSION, NOT ELSEWHERE CLASSIFIED (3) Atrial fibrillation Code(s): I48.91 - UNSPECIFIED ATRIAL FIBRILLATION (4) CLL (chronic lymphocytic leukemia) Code(s): C91.10 - CHRONIC LYMPHOCYTIC LEUK OF B-CELL TYPE NOT ACHIEVE REMIS (5) Penicillin allergy Code(s): Z88.0 - ALLERGY STATUS TO PENICILLIN (6) S/P thoracentesis Code(s): Z98.890 - OTHER SPECIFIED POSTPROCEDURAL STATES (7) Anemia Code(s): D64.9 - ANEMIA, UNSPECIFIED Assessment/Plan Chest CT scan: + Pl effusion, + consolidation, + chest LA. Pulmonary Consult and ID consult : appreciated IV abtx (Ceftriaxone) s/p thoracentesis. OOB as tolerated. Heparin drip; to monitor H/H- if stable to restart Xarelto in AM Case was d/w pt's nurse.
[2017-02-24 07:57] LABS: HEMATOCRIT 31.5 % (35.4-49); HEMOGLOBIN 10.3 GM/dL (11.7-16.9); MCH 31.5 pg (25.7-33.7); MCHC 32.7 g/dl (32.0-35.9); MEAN CELL VOLUME 96.3 fl (80-96); MEAN PLT VOLUME 7.8 fl (7.5-11.1); PLATELET COUNT 183 K/MM3 (134-434); RBC 3.27 M/mm3 (4.00-5.60); RDW 17.3 % (11.9-15.9); WHITE BLOOD COUNT 24.3 K/mm3 (4.0-10.0)
[2017-02-24 08:19] LABS: ANION GAP 9 (8-16); BLOOD UREA NITROGEN 18 mg/dL (7-18); CALCIUM 8.2 mg/dL (8.5-10.1); CHLORIDE 106 mmol/L (98-107); CO2 25 mmol/L (21-32); CREATININE 0.5 mg/dL (0.7-1.3); GLUCOSE,RANDOM 83 mg/dL (74-106); SODIUM 140 mmol/L (136-145)
[2017-02-24 09:40] VITALS: TEMP 98
[2017-02-24] MEDS: CEFTRIAXONE 1 G/50 ML PREMIX 50 ML IVPB SCH (10:12)
[2017-02-24] MEDS: SOTALOL HCL 80 MG TABLET (FP) PO SCH (10:13)
[2017-02-24 10:33] LABS: ACANTHOCYTES 0; ANISOCYTOSIS 0; HELMET CELLS 0; HOWELL-JOLLY BODIES 0; MACROCYTOSIS 0; OVALOCYTE 0; PLATELET ESTIMATE NORMAL; SICKELED CELLS 0; TARGET CELLS 0; TEAR DROP CELLS 0; TOXIC GRANULATION 0
--- NOTE | 2017-02-24 12:44 | PN ---
Progress Note (short form) - Note Progress Note: PULMONARY VSS/AFEBRILE COUGH WITH INTERMITTENT SPUTUM CONTINUES ANICTERIC DULLNESS/DECREASED BREATH SOUNDS RIGHT BASE S1S2 BS+ NO EDEMA LABS/IMAGES/MEDS/MICRO/NOTES REVIEWED EXUDATIVE/LYMPHOCYTIC PREDOMINANT CHARACTERISTICS OF PLEURAL FLUID IMP R PLEURAL EFFUSION ? RELATED TO CLL CLL AFIB ASHD HTN PLAN ANTIBIOTICS PER PMD SINUS XRAY IS CLEAR ANTI-TUSSIVES PRN RESTART ELIQUIS DISCHARGE PLANNING FOR TODAY Alyx LEVY MD
[2017-02-24] MEDS ORDERED: RIVAROXABAN 20 MG TABLET PO ONE (13:57)
[2017-02-24] MEDS ORDERED: RIVAROXABAN 20 MG TABLET PO SCH (14:00)
--- NOTE | 2017-02-24 14:13 | DS ---
Physical Examination Vital Signs: Vital Signs Temperature 98.0 F 02/24/17 09:39 Pulse Rate 78 02/24/17 09:39 Respiratory Rate 18 02/24/17 09:39 Blood Pressure 122/59 02/24/17 09:39 O2 Sat by Pulse Oximetry (%) 100 02/24/17 09:00 Findings/Remarks: Pt w/o SOB, CP, palp, abd apin, diarrhea. Pt states that his breathing is better. Constitutional: Yes: No Distress, Calm Cardiovascular: Yes: Regular Rate and Rhythm, S1, S2 Respiratory: Yes: Regular, CTA Bilaterally, Rhonchi (minimal, scattered at right base), Other (decreased BS at right base) Gastrointestinal: Yes: Normal Bowel Sounds, Soft. No: Tenderness Edema: No Neurological: Yes: Alert, Oriented Labs: CBC, BMP 02/24/17 06:45 02/24/17 06:45 Discharge Summary Reason For Visit: PLEURAL EFFUSION Current Active Problems Atrial fibrillation (Acute) CLL (chronic lymphocytic leukemia) (Acute) Cough (Acute) Penicillin allergy (Acute) Pleural effusion (Acute) Pleural effusion (Acute) Pneumonia (Acute) S/P thoracentesis (Acute) Hospital Course: Pt came to ER c/o Cough and SOB, after was treated at home with Levaquin for 4 days. Pt was admitted, seen by Pulmonary and ID, started on IV Rochephine; Pt's Chest CT scan was c/w moderate pleural effusion, PNA. Pt underwent thoracentesis ( delayed by pt taking Xarelto) with improvement in his condition. Pt to be DC'ed home on PO antibiotic and office f/u. Condition: Improved - Instructions Diet, Activity, Other Instructions: Resume diet. Repeat Blood work on Saturday (02/26/2017) and call my office for report. Referrals: Jeyson Ospina MD [Primary Care Provider] - (within one week) Kai Bar MD [Staff Physician] - (within one week) - Home Medications Comprehensive Discharge Medication List: Ambulatory Orders this list might NOT be accurate. Rivaroxaban [Xarelto -] 20 mg PO DAILY #10 tablet 09/13/15 Ramipril [Altace] 2.5 mg PO DAILY #90 capsule 10/28/15 Sotalol HCl [Betapace -] 80 mg PO DAILY 02/19/17 Cefpodoxixe 200 mg BID, PO for 7 days; start 02/25/2017.
[2017-02-24 15:38] VITALS: BP 111/54; PULSE 75
[2017-02-25] MEDS ORDERED: RIVAROXABAN 20 MG TABLET PO SCH (10:00)
--- NOTE | 2017-03-04 15:27 | PATH ---
Cytology Non-Gynecological Report Patient Name: GOLDIE DIAZ [facility]. Rec. #: [id number] /Age/Gender: 1935 (Age: 81) / M Account: [id number] Location: [address] [place] [address] Taken: 02/22/2017 Received: 02/27/2017 Reported: 03/04/2017 Physicians: Margarita Arnold M.D. Robert DeMatteo, M.D. Louis C. Androne, M.D. Specimen(s) Received A: RIGHT PLEURAL FLUID B: RIGHT PLEURAL FLUID Clinical History Pleural effusion Final Diagnosis A & B. PLEURAL FLUID, RIGHT, THORACENTESIS: SATISFACTORY FOR EVALUATION. LYMPHOCYTIC PLEURAL EFFUSION. SMALL LYMPHOID POPULATION AND FEW MESOTHELIAL CELLS PRESENT. SEE COMMENT. Comment: Immunohistochemical stains performed and interpreted at [facility] show a population of small lymphocytes comprised predominantly of CD3+ T lymphocytes admixed with scattered CD20+ B cells. TTF-1 and MYRANDA are negative. Immunohistochemical stains performed at [place], [place] ([id number]) and interpreted at [facility] show T cells co-express CD5 and BCL-2. Scattered cells are positive for BCL6. CD23 stain is negative. Overall findings show a T-cell rich lymphoid effusion. No carcinoma identified. Although findings may represent a reactive process, the possibility of partial involvement with the patient's know history of CLL cannot be completely excluded in this material. Suggest clinical/ radiologic correlation and further work-up including flow cytometry, as clinically warranted. Electronically Signed Di Sarmiento M.D. Gross Description A. Approximately 50 cc of bloody fluid received fixed in 50% alcohol. Two cytofunnels and one cellblock prepared. B. Approximately 50 cc of bloody fluid received fresh. Two cytofunnels and one cellblock prepared.
== END 2017-02-24 15:58 | disposition home or self-care (01) | DRG 186 ==
LOC: JER 15:09 → JERBED 21:40 → J5S 02-20 02:08
PROVIDERS: ADMIT Specialist; ATTEND Specialist
PROC: 0W993ZX Drainage of Right Pleural Cavity, Percutaneous Approach, Diagnostic (ICD-10-PCS; principal; 2017-02-22)
DX: J90 Pleural effusion, not elsewhere classified (principal); J18.9 Pneumonia, unspecified organism; C91.10 Chronic lymphocytic leukemia of B-cell type not having achieved remission; I48.91 Unspecified atrial fibrillation; Z88.0 Allergy status to penicillin; I10 Essential (primary) hypertension; I25.10 Atherosclerotic heart disease of native coronary artery without angina pectoris
CPT/HCPCS: 36415; 70210-TC; 71010-TC; 71020-TC; 71250-TC; 76942; 80048; 80053; 81003; 81015; 82042; 82150; 82272; 82550; 82945; 83615; 83735; 83880; 84157; 84484; 85025; 85027; 85610; 85730; 86850; 86900; 86901; 87040; 87070; 87075; 87102; 87116; 87205; 87206; 87210; 87899; 88108; 88305-TC; 88341-TC; 89051; 93005; 93010; 99283-25; 99284-25; J1644

== ENCOUNTER 2017-03-02 09:50 | Inpatient (IN) | payer OTHER ==
--- NOTE | 2017-03-02 10:11 | PDOC ---
History of Present Illness - General Chief Complaint: Rash Stated Complaint: INJURY, HEADACHE Time Seen by Provider: 03/02/17 10:11 - History of Present Illness Initial Comments: 03/02/17 10:11 Mr. Lopez is an 81 yo male w/ pmh of AFIB (on Xarelto), COPD, past pleural effusion, tricuspid regurgitation, HTN, and Leukemia discharged 6 days ago after admission for pneumonia who presents complaining of a 5 day history of facial redness/bruising. He also reports 2 instances of seeing a flashing light "aura" on Saturday for several minutes out of both eyes. He had originally gone to his PCP for evaluation of this 4 days ago and the bruising was thought to be a scratch or the result of unknown trauma at that time. Subsequently he developed some increased redness and swelling around his right eye, prompting his return for re-evaluation. He reports he has had some "shooting pains" across his right scalp that come and go throughout the day. He currently is in no pain. The patient denies chest pain, shortness of breath, headache and dizziness. Denies fever, chills, nausea, vomit, diarrhea and constipation. Denies dysuria, frequency, urgency and hematuria. Allergies: Penicillins Past History - Past Medical History Allergies/Adverse Reactions: Allergies Allergy/AdvReac Type Severity Reaction Status Date / Time Penicillins Allergy Rash Verified 03/02/17 10:10 Home Medications: Ambulatory Orders Rivaroxaban [Xarelto -] 20 mg PO DAILY #10 tablet 09/13/15 Ramipril [Altace] 2.5 mg PO DAILY #90 capsule 10/28/15 Sotalol HCl [Betapace -] 80 mg PO DAILY 02/19/17 Anemia: Yes Cancer: (CLL) Cardiac Disorders: Yes (A Fib) COPD: Yes CHF: No HTN: Yes Hypercholesterolemia: Yes - Surgical History Abdominal Surgery: Yes (hernia) - Suicide/Smoking/Psychosocial Hx Smoking Status: Yes Smoking History: Never smoked Have you smoked in the past 12 months: No Number of Cigarettes Smoked Daily: 0 Information on smoking cessation initiated: No Hx Alcohol Use: No Drug/Substance Use Hx: No Substance Use Type: None Hx Substance Use Treatment: No Review of Systems - Review of Systems Comments:: 03/02/17 10:43 GENERAL/CONSTITUTIONAL: No fever or chills. No weakness. HEAD, EYES, EARS, NOSE AND THROAT: +Right sided eye blurryness he reports is due to his eyelid overlapping his pupil. Facial tenderness over rash area for 4 days. No ear pain or discharge. No sore throat. CARDIOVASCULAR: No chest pain or shortness of breath RESPIRATORY: No cough, wheezing, or hemoptysis. GASTROINTESTINAL: No nausea, vomiting, diarrhea or constipation. GENITOURINARY: No dysuria, frequency, or change in urination. MUSCULOSKELETAL: No joint or muscle swelling or pain. No neck or back pain. SKIN: No rash NEUROLOGIC: +Intermittent headache / "shooting pains" as described. No vertigo, loss of consciousness, or change in strength/sensation. ENDOCRINE: No increased thirst. No abnormal weight change HEMATOLOGIC/LYMPHATIC: No anemia, easy bleeding, or history of blood clots. ALLERGIC/IMMUNOLOGIC: No hives or skin allergy. *Physical Exam - Vital Signs Last Vital Signs Temp Pulse Resp BP Pulse Ox 97.9 F 83 18 122/59 99 03/02/17 10:05 03/02/17 10:05 03/02/17 10:05 03/02/17 10:05 03/02/17 10:05 - Physical Exam Comments: 03/02/17 10:45 GENERAL: Awake, alert, and fully oriented, in no acute distress HEAD: No signs of trauma, normocephalic, atraumatic EYES: +warm, erythematous area originating from small 3 cm apparent ecchymosis on right rastafarian. Extends to right orbit and inferiorly with periorbital edema. Honey colored crust noted above ecchymotic region. Area extremely sensitive to touch. No pain on movement of eyes, visual acuity noted to be at baseline with Right (20/25) slightly inferior to Left (20/20). PERRLA, EOMI, sclera anicteric , conjunctiva clear ENT: Auricles normal inspection, hearing grossly normal, nares patent, oropharynx clear without exudates. Moist mucosa NECK: Normal ROM, supple, no lymphadenopathy, JVD, or masses LUNGS: No distress, speaks full sentences, clear to auscultation bilaterally HEART: Regular rate and rhythm, normal S1 and S2, no murmurs, rubs or gallops, peripheral pulses normal and equal bilaterally. ABDOMEN: Soft, nontender, normoactive bowel sounds. No guarding, no rebound. No masses EXTREMITIES: Normal inspection, Normal range of motion, no edema. No clubbing or cyanosis. NEUROLOGICAL: Cranial nerves II through XII grossly intact. Normal speech, normal gait, no focal sensorimotor deficits SKIN: +As above around right face. Otherwise warm, dry, normal turgor, no rashes or lesions noted. ED Treatment Course - LABORATORY CBC & Chemistry Diagram: 03/02/17 10:55 03/02/17 11:02 Medical Decision Making - Medical Decision Making 03/02/17 10:50 Mr. Lopez is an 81 yo male w/ pmh as above who presents w/ symptoms concerning for cellulitic process surrounding eye. IV ABX started and labs/imaging taken in preparation for suspected obs admission. 03/02/17 11:34 CXR revealed slight increase of pleural effusion from previous exam. Patient WBC elevated at 23.7. Admitting for IV ABX / obs. 03/02/17 12:[address] Ospina. Agrees with admission decision and will evaluate in hospital. *DC/Admit/Observation/Transfer Diagnosis at time of Disposition: Cellulitis Qualifiers: Site of cellulitis: face Qualified Code(s): L03.211 - Cellulitis of face Pneumonia Qualifiers: Pneumonia type: due to unspecified organism Laterality: unspecified laterality Lung location: unspecified part of lung Qualified Code(s): J18.9 - Pneumonia, unspecified organism - Discharge Dispostion Admit: Yes - Referrals Referrals: Jeyson Ospina MD [Primary Care Provider] - - Patient Instructions - Post Discharge Activity
[2017-03-02] MEDS ORDERED: CLINDAMYCIN 600MG PREMIX IVPB 600 MG/50 ML BAG IVPB ONE ×2 (10:42→10:46)
[2017-03-02 11:11] LABS: HEMOGLOBIN 11.1 GM/dL (11.7-16.9); MCH 31.6 pg (25.7-33.7); MCHC 32.7 g/dl (32.0-35.9); MEAN CELL VOLUME 96.5 fl (80-96); MEAN PLT VOLUME 7.3 fl (7.5-11.1); PLATELET COUNT 217 K/MM3 (134-434); RBC 3.52 M/mm3 (4.00-5.60); RDW 17.1 % (11.9-15.9); WHITE BLOOD COUNT 23.7 K/mm3 (4.0-10.0)
--- NOTE | 2017-03-02 11:28 | PDOC ---
Attending Attestation - HPI HPI: 03/02/17 11:30 The patient is a 81 year old male, with a significant past medical history of hypertension, hyperlipidemia, anemia, AFib(on Xarelto), tricuspid regurgitation , COPD, PE, and leukemia, who presents to the emergency department with increased facial swelling, erythema, and itching for approximately 6 days. The patient reports noting increased facial swelling, erythema, and ecchymosis surrounding the right eyelid for several days. Patient reports his swelling and erythema are localized to the right side of his face and are nonradiating in nature. He denies any recent trauma or injury to the area. Patient reports mild blurry vision in the right eye secondary to swelling. He denies any associated fever, chills, headache, or dizziness, photophobia, pain with eye movement or double vision. He reports changes in balance, but can still ambulate. He denies any abdominal pain, nausea, vomiting, diarrhea, or constipation. He denies any dysuria, hematuria, frequency, or urgency. He denies any chest pain, shortness of breath, diaphoresis, palpitations, or lower extremity edema. He denies any recent travel or sick contacts. Patient reports he was recently admitted to [facility] on 02/19/17 for a pleural effusion, cough, and chronic lymphocytic leukemia. Allergies: Penicillins Past Surgical History: None reported Social History: Former smoker. No ETOH or recreational drug use. PCP: Dr. Ospina - Physicial Exam PE: 03/02/17 11:30 Vitals: Triage Vital signs reviewed General Appearance: no acute distress, well nourished well developed, Head: Right sided facial swelling with mild soft tissue swelling to the forehead , cheek, and surrounding the right eye, with right lid involvement. Area of bruising and yellowish crusting to the forehead. Atraumatic, normocephalic Eyes: Increased swelling and erythema surrounding the right eye, with lid involvement. Pupils equal reactive round, extraocular movement intact. No pain with extraocular eye movements. Ears: TM's normal bilaterally; Nose: Nares patent bilaterally;no nasal congestion Throat: Posterior oropharynx without erythema, mucous membranes moist, Neck: Supple;No Nuchal rigidity Chest Wall: Nontender Cardiac: Regular rate and rhythm, no murmurs, no rubs, no gallops, Lungs: Clear to auscultation bilateral, good air movement bilaterally, Extremities: Full range of motion to all extremities, no cyanosis, clubbing, or edema Skin: Warm and dry, no petechiae. Increased facial swelling. Neuro: AOX3; Cranial Nerves 2-12 grossly c intact, Strength intact to all extremities, Sensation intact to all extremities, gait normal Psych: normal mood, normal affect - Medical Decision Making 03/02/17 11:30 EXAM: CXR INTERPRETED BY: Dr. Marley REVIEWED BY: Dr. Fletcher IMPRESSION: Since 02/22/2017, there is slight increase in right pleural effusion with some basilar atelectasis or infiltrate. Correlation recommended. Documentation prepared by Jose Feliz, acting as medical pathologist for Vasyl Feltcher MD. <Jose Feliz - Last Filed: 03/02/17 14:35> - Resident Resident Name: Joel Jacobsen - ED Attending Attestation I have performed the following: I have examined & evaluated the patient, The case was reviewed & discussed with the resident, I agree w/resident's findings & plan, Exceptions are as noted - Medical Decision Making History and examination consistent with facial cellulitis. Given the patient has recently been on outpatient antibiotics for pneumonia. 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 We'll cover with acyclovir. Recommend inpatient ophthalmology consultation Dr. Ospina updated. 03/02/17 15:31 <Vasyl Fletcher - Last Filed: 03/02/17 15:31>
[2017-03-02 11:30] LABS: ALBUMIN 3.1 g/dl (3.4-5.0); ANION GAP 8 (8-16); BILIRUBIN,TOTAL 0.4 mg/dL (0.2-1.0); BLOOD UREA NITROGEN 23 mg/dL (7-18); CALCIUM 8.4 mg/dL (8.5-10.1); CHLORIDE 102 mmol/L (98-107); CO2 28 mmol/L (21-32); CREATININE 0.6 mg/dL (0.7-1.3); GLUCOSE,RANDOM 97 mg/dL (74-106); POTASSIUM 4.6 mmol/L (3.5-5.1); SGOT/AST 20 U/L (15-37); SGPT/ALT 16 U/L (12-78); SODIUM 138 mmol/L (136-145); TOT PROT 6.5 g/dl (6.4-8.2)
[2017-03-02 11:31] LABS: ALK PHOS 81 U/L (45-117)
[2017-03-02 12:49] LABS: PLATELET ESTIMATE NORMAL
[2017-03-02] MEDS ORDERED: VANCOMYCIN 1,000 MG in DEXTROSE 5%-WATER - 250 ML IVPB ONE (14:09)
[2017-03-02] MEDS ORDERED: ACETAMINOPHEN WITH CODEINE 300MG/30MG TABLET PO PRN (14:09)
[2017-03-02] MEDS ORDERED: VANCOMYCIN 1 GRAM (PRE-DOCKED) 1,000 MG/250 ML BAG IVPB ONE (14:22)
[2017-03-02] MEDS ORDERED: FLUORESCEIN NA 1 EA STRIP OD ONE (14:30)
[2017-03-02] MEDS ORDERED: FLUORESCEIN NA 1 EA STRIP ONE (14:30)
[2017-03-02] MEDS ORDERED: ACYCLOVIR 400 MG TABLET PO ONE (14:35)
[2017-03-02] MEDS ORDERED: ACYCLOVIR 200 MG CAPSULE ONE (14:46)
--- NOTE | 2017-03-02 14:47 | HP ---
Admitting History and Physical - Primary Care Physician PCP: Jeyson Ospina - Admission Chief Complaint: swelling of the face History of Present Illness: Pt states that his son noticed that his right side of the face was swollen; pt came to ER. and was admitted for Cellulitis, started on Clindamycin IV. Pt came to my office past Saturday for f/u on pneumonia (after was DC'ed from hospital); I noticed on the right side of forehead 2 scratch hartmann (3-5 mm diameter each), no signs of associated cellulitis; when I asked pt about it he stated that likely scratched his face. - Past Medical History Cardiovascular: Yes: AFIB (on AC), CHF, Deep Vein Thrombosis, Other (TR) Pulmonary: Yes: COPD, Pneumonia, Other (Pleural effusion, s/p thoracentesis) Heme/Onc: Yes: Anemia, Cancer (CLL; per pt. latest WBC 60K) Additional Past Medical History: Hyponatremia - Smoking History Smoking history: Never smoked Have you smoked in the past 12 months: No Aproximately how many cigarettes per day: 0 - Alcohol/Substance Use Hx Alcohol Use: No - Social History History of Recent Travel: No Home Medications - Allergies Allergies/Adverse Reactions: Allergies Allergy/AdvReac Type Severity Reaction Status Date / Time Penicillins Allergy Rash Verified 03/02/17 10:10 - Home Medications Home Medications: Ambulatory Orders Rivaroxaban [Xarelto -] 20 mg PO DAILY #10 tablet 09/13/15 Ramipril [Altace] 2.5 mg PO DAILY #90 capsule 10/28/15 Sotalol HCl [Betapace -] 80 mg PO DAILY 02/19/17 Review of Systems - Review of Systems Constitutional: denies: Chills, Fever Eyes: reports: Other (decreased vision in right eye secondary to eyelid swelling and eye being partially closed; normal vision when opening right eye, no eye pain.). denies: Blind Spots, Blurred Vision, Double Vision, Eye Pain, Photophobia HENT: denies: Difficult Swallowing, Ear Discharge, Ear Pain, Nasal Congestion, Throat Pain Neck: denies: Decreased ROM, Pain on Movement, Stiffness, Tenderness Cardiovascular: denies: Chest Pain, Edema, Palpitations Respiratory: denies: Cough, SOB, Wheezing Gastrointestinal: denies: Abdominal Pain, Diarrhea, Nausea, Vomiting Genitourinary: denies: Burning, Discharge, Dysuria, Frequency Musculoskeletal: denies: Back Pain, Joint Swelling, Muscle Pain Physical Examination Vital Signs: Vital Signs Temperature 97.9 F 03/02/17 10:05 Pulse Rate 83 03/02/17 10:05 Respiratory Rate 18 03/02/17 10:05 Blood Pressure 122/59 03/02/17 10:05 O2 Sat by Pulse Oximetry (%) 99 03/02/17 10:05 Findings/Remarks: Right side of the face is swollen. Constitutional: Yes: No Distress, Calm Eyes: Yes: Conjunctiva Clear, EOM Intact, PERRL, Other (right eye is partially closed secondary to swelling of eyelids. Periobital swelling is present. No calor, no pain with palpation.). No: Diplopia, Tearing HENT: Yes: Normocephalic. No: Epistaxis, Pharyngeal Erythema Neck: Yes: Trachea Midline. No: Lymphadenopathy Cardiovascular: Yes: Regular Rate and Rhythm, S1, S2 Respiratory: Yes: Regular, CTA Bilaterally. No: Rales Gastrointestinal: Yes: Normal Bowel Sounds, Soft. No: Tenderness ...Rectal Exam: Yes: Deferred Renal/: No: CVA Tenderness - Left, CVA Tenderness - Right Musculoskeletal: No: Back Pain, Joint Swelling Extremities: No: Cold, Cool Edema: No Integumentary: Yes: Other (5 cm diameter skin bruise/ stage 2 ulcer, with yellow crusts around it, no vesicles, on the right side of the forehead; no discharge.) Neurological: Yes: Alert, Oriented, Other (symmetric sensory and motor examination of UE/ LE/ face.) Psychiatric: Yes: Alert, Oriented Labs: CBC, BMP 03/02/17 10:55 03/02/17 11:02 Imaging - Results X-ray: Report Reviewed Problem List - Problems (1) Cellulitis, face Code(s): L03.211 - CELLULITIS OF FACE (2) Penicillin allergy Code(s): Z88.0 - ALLERGY STATUS TO PENICILLIN (3) CLL (chronic lymphocytic leukemia) Code(s): C91.10 - CHRONIC LYMPHOCYTIC LEUK OF B-CELL TYPE NOT ACHIEVE REMIS (4) Pleural effusion Code(s): J90 - PLEURAL EFFUSION, NOT ELSEWHERE CLASSIFIED (5) Atrial fibrillation Code(s): I48.91 - UNSPECIFIED ATRIAL FIBRILLATION (6) History of pneumonia Code(s): Z87.01 - PERSONAL HISTORY OF PNEUMONIA (RECURRENT) (7) Heart failure Code(s): I50.9 - HEART FAILURE, UNSPECIFIED Assessment/Plan Clindamycin IV Vancomycin IV, once. ID consult. Continue home medications AM labs.
[2017-03-02 16:43] VITALS: BMI 20.7
[2017-03-02] MEDS: CLINDAMYCIN 600MG PREMIX IVPB 600 MG/50 ML BAG IVPB SCH ×2 (18:05→21:45)
[2017-03-02] MEDS: LACTOBACILLUS ACIDOPHILUS 1 EACH TAB (FP) PO SCH (18:05)
[2017-03-03] MEDS: CLINDAMYCIN 600MG PREMIX IVPB 600 MG/50 ML BAG IVPB SCH (02:27)
--- NOTE | 2017-03-03 08:22 | PN ---
Progress Note (short form) - Note Progress Note: ID Patient has 2 processes: Impetigo of the forehead with mild periorbital swelling most likely staph or strep Vesicular discrete lesions across his lower back involving both side Laboratory Tests 03/02/17 03/02/17 10:55 11:02 WBC 23.7 H Plt Count 217 Neutrophils % (Manual) 14.2 L D Band Neutrophils % 1.0 Lymphocytes % (Manual) 60.6 H D Monocytes % (Manual) 2 L BUN 23 H Creatinine 0.6 L Assessment Does not need to stay in the hospital Plan Valtrex 1 gr tid Hand hygiene encouraged Keflex 5oomg qid Lulu COTA Problem List - Problems (1) Cellulitis, face Code(s): L03.211 - CELLULITIS OF FACE (2) CLL (chronic lymphocytic leukemia) Code(s): C91.10 - CHRONIC LYMPHOCYTIC LEUK OF B-CELL TYPE NOT ACHIEVE REMIS (3) Shingles Code(s): B02.9 - ZOSTER WITHOUT COMPLICATIONS
--- NOTE | 2017-03-03 09:48 | CONSULT ---
Consult - text type - Consultation Consultation Note: Ophthalmology consult 81 year old man with Zoster of right face, cheek. Currently taking Valacyclovir , pt reports that lid swelling is much better VA OD 20/40, near with glasses P 3/3--> 3+/3+ no APD EOM full OU PLE OD - LLL tr edema, no lesions along lid margins S/C tr injection K clear, no abrasion/defect A/C formed I round, postsurgical FT soft Imp/Plan Zoster, right, improving - no corneal findings, only tr conjunctival injection. Advise Erythromycin ophthalmic to right eye at bedtime. Otherwise, continue current management, follow up as outpatient
[2017-03-03] MEDS ORDERED: PT OWN MED DRAWER 7, Y5N ONE (09:54)
[2017-03-03] MEDS ORDERED: SOTALOL HCL 80 MG TABLET (FP) PO SCH (10:00)
[2017-03-03] MEDS ORDERED: RIVAROXABAN 20 MG TABLET PO SCH (10:00)
[2017-03-03] MEDS ORDERED: RAMIPRIL 2.5 MG CAPSULE (FP) PO SCH (10:00)
[2017-03-03] MEDS: LACTOBACILLUS ACIDOPHILUS 1 EACH TAB (FP) PO SCH (10:02)
--- NOTE | 2017-03-03 11:35 | EKG ---
Test Reason : Blood Pressure : / mmHG Vent. Rate : 071 BPM Atrial Rate : 071 BPM P-R Int : 196 ms QRS Dur : 094 ms QT Int : 400 ms P-R-T Axes : 056 000 097 degrees QTc Int : 434 ms SINUS RHYTHM WITH OCCASIONAL PREMATURE VENTRICULAR COMPLEXES INCOMPLETE RIGHT BUNDLE BRANCH BLOCK POSSIBLE ANTEROSEPTAL INFARCT (CITED ON OR BEFORE 18-OCT-2015) ABNORMAL ECG Confirmed by RACHEL DAVIES MD ([id number]) on 03/03/2017 11:34:50 AM Referred By: Confirmed By:RACHEL DAVIES MD
[2017-03-03] MEDS ORDERED: CEPHALEXIN MONOHYDRATE 500 MG CAPSULE (UD) PO SCH (12:00)
--- NOTE | 2017-03-03 13:21 | DS ---
Physical Examination Vital Signs: Vital Signs Temperature 98.2 F 03/03/17 08:45 Pulse Rate 75 03/03/17 08:45 Respiratory Rate 20 03/03/17 08:45 Blood Pressure 127/61 03/03/17 08:45 O2 Sat by Pulse Oximetry (%) 99 03/02/17 14:58 Findings/Remarks: Pt w/o fever, chills, confusion, eye pain, blurry vision, SOB, CP, palp, abd pain. Time spent for patient care: over 45 minutes. Constitutional: Yes: No Distress, Calm Eyes: Yes: Conjunctiva Clear, EOM Intact, Other (Decreased periobital swelling; right forehead dry lession/ abrassion) Cardiovascular: Yes: Regular Rate and Rhythm, S1, S2 Respiratory: Yes: Regular, CTA Bilaterally. No: Rales Gastrointestinal: Yes: Normal Bowel Sounds, Soft. No: Tenderness Edema: No Integumentary: Yes: Other (1 mm scattered vesicles on the back.) Neurological: Yes: Alert, Oriented Labs: CBC, BMP 03/02/17 10:55 03/02/17 11:02 Discharge Summary Reason For Visit: CELLULITIS, PNEUMONIA Current Active Problems Cellulitis (Acute) Cellulitis, face (Acute) Heart failure (Acute) History of pneumonia (Acute) Pneumonia (Acute) Shingles (Acute) Procedures: Principal: CXR Hospital Course: Pt came to ER with right eye swelling and right forehead skin bruise like lesion. 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 Pt was seen by Opthalmo (Dr. Davis, no Herpes ophtalmicus) and ID (Dr. Lawson, swithched to PO medications and cleared for DC). Pt to be DC home today, treatment plan ( pt needs to take medications today) and f/u was explained to pt ; all questions were answered. Condition: Improved - Instructions Diet, Activity, Other Instructions: Resume Diet. Keep weel Hydrated Referrals: Jeyson Ospina MD [Primary Care Provider] - (within 1 week; please call my office for appointmnet) Tyler Davis [Staff Physician] - (in 1-2 weeks; please call office for appointmnet) Disposition: HOME - Home Medications Comprehensive Discharge Medication List: Ambulatory Orders this list might NOT be accurate Rivaroxaban [Xarelto -] 20 mg PO DAILY #10 tablet 09/13/15 Ramipril [Altace] 2.5 mg PO DAILY #90 capsule 10/28/15 Sotalol HCl [Betapace -] 80 mg PO DAILY 02/19/17
[2017-03-03] MEDS ORDERED: valACYclovir HCL 1000 MG TABLET PO SCH (14:00)
[2017-03-03 14:53] VITALS: BP 120/84; PULSE 78; TEMP 98.6
[2017-03-03] MEDS ORDERED: ERYTHROMYCIN 0.5% OPHTHALMIC OINTMENT 3.5 GM TUBE OD SCH (22:00)
== END 2017-03-03 16:13 | disposition home or self-care (01) | DRG 596 ==
LOC: JER 09:50 → JERBED 12:17 → J8W 16:03
PROVIDERS: ADMIT Specialist; ATTEND Specialist
DX: B02.9 Zoster without complications (principal); L03.211 Cellulitis of face; C91.10 Chronic lymphocytic leukemia of B-cell type not having achieved remission; J90 Pleural effusion, not elsewhere classified; E78.5 Hyperlipidemia, unspecified; Z88.0 Allergy status to penicillin; I48.91 Unspecified atrial fibrillation; I50.9 Heart failure, unspecified; I11.0 Hypertensive heart disease with heart failure
CPT/HCPCS: 36415; 71046-TC; 80053; 85025; 93005; 93010; 99284-25

== ENCOUNTER 2017-04-16 10:49 | Emergency (ER) | payer OTHER ==
[2017-04-16 11:11] VITALS: TEMP 98.2; BMI 20.9
[2017-04-16 12:51] LABS: VENOUS PC02 43.3 mmHg (38-52); VENOUS PH 7.39 (7.32-7.42); VENOUS PO2 30.3 mmHg (28-48)
[2017-04-16 12:59] LABS: HEMATOCRIT 34.6 % (35.4-49); HEMOGLOBIN 11.3 GM/dL (11.7-16.9); MCH 31.8 pg (25.7-33.7); MCHC 32.7 g/dl (32.0-35.9); MEAN CELL VOLUME 97.2 fl (80-96); PLATELET COUNT 255 K/MM3 (134-434); RBC 3.56 M/mm3 (4.00-5.60); RDW 18.3 % (11.9-15.9); WHITE BLOOD COUNT 23.5 K/mm3 (4.0-10.0)
[2017-04-16 13:12] LABS: INR 1.19 (0.82-1.09); PROTHROMBIN TIME (PATIENT) 13.5 SEC (9.98-11.88)
[2017-04-16 13:15] LABS: ACTIVATED PTT 32.3 SECONDS (26.9-34.4)
[2017-04-16 13:16] LABS: ANION GAP 8 (8-16); BLOOD UREA NITROGEN 26 mg/dL (7-18); CALCIUM 8.5 mg/dL (8.5-10.1); CHLORIDE 102 mmol/L (98-107); CO2 27 mmol/L (21-32); CREATININE 0.6 mg/dL (0.7-1.3); GLUCOSE,RANDOM 94 mg/dL (74-106); POTASSIUM 4.5 mmol/L (3.5-5.1); SGOT/AST 23 U/L (15-37); SGPT/ALT 17 U/L (12-78); SODIUM 137 mmol/L (136-145)
[2017-04-16 13:16] LABS: URINE APPEARANCE CLEAR; URINE BILIRUBIN NEGATIVE (NEGATIVE); URINE BLOOD NEGATIVE (NEGATIVE); URINE COLOR YELLOW; URINE GLUCOSE (UA) NEGATIVE (NEGATIVE); URINE KETONE NEGATIVE (NEGATIVE); URINE LEUK ESTERASE NEGATIVE (NEGATIVE); URINE NITRITE NEGATIVE (NEGATIVE); URINE PROTEIN NEGATIVE (NEGATIVE)
[2017-04-16 13:19] LABS: ALK PHOS 90 U/L (45-117); BILIRUBIN,TOTAL 0.4 mg/dL (0.2-1.0); TOT PROT 6.9 g/dl (6.4-8.2)
--- NOTE | 2017-04-16 14:21 | PDOC ---
History of Present Illness - General History Source: Patient Exam Limitations: No Limitations - History of Present Illness Initial Comments: 04/16/17 14:50 The patient is an 82-year-old male, with a significant past medical history of AFIB (on Xarelto), COPD, past pleural effusion, tricuspid regurgitation, HTN, and Leukemia discharged 6 days ago after admission for pneumonia who presents the ED with 2 weeks of cough, chest tightness, and chills. The patient states that his cough is productive of green phlegm. He also reports that he has been experiencing palpitations at night. He reports getting his flu shot and pneumonia shot this year. The patient denies any fever, nausea, vomiting, diarrhea, or abdominal pain. He denies any chest pain or shortness of breath. Allergies: Penicillins Social Hx: The patient denies any tobacco use, alcohol use, or drug use. PCP: Dr. Jeyson Ospina Phthalic Acid Purifier: Dr. Kilgore Refinery Superintendent: Dr. Khan <Ida Singh - Last Filed: 04/16/17 15:11> <Jessica Knutson - Last Filed: 04/19/17 01:50> - General Chief Complaint: Respiratory Stated Complaint: COUGH Time Seen by Provider: 04/16/17 11:33 Past History <Ida Singh - Last Filed: 04/16/17 15:11> - Past Medical History Anemia: Yes Cancer: (CLL) Cardiac Disorders: Yes (A Fib) COPD: Yes CHF: No HTN: Yes Hypercholesterolemia: Yes - Surgical History Abdominal Surgery: Yes (hernia) - Suicide/Smoking/Psychosocial Hx Smoking Status: Yes Smoking History: Never smoked Have you smoked in the past 12 months: No Number of Cigarettes Smoked Daily: 0 Hx Alcohol Use: No Drug/Substance Use Hx: No Substance Use Type: None Hx Substance Use Treatment: No <Jessica Knutson - Last Filed: 04/19/17 01:50> - Past Medical History Allergies/Adverse Reactions: Allergies Allergy/AdvReac Type Severity Reaction Status Date / Time Penicillins Allergy Rash Verified 04/16/17 11:07 Home Medications: Ambulatory Orders Rivaroxaban [Xarelto -] 20 mg PO DAILY #10 tablet 09/13/15 Ramipril [Altace] 2.5 mg PO DAILY #90 capsule 10/28/15 Sotalol HCl [Betapace -] 80 mg PO DAILY 12/26/17 Acetaminophen W/ Codeine #3 [Tylenol # 3 -] 2 tab PO Q6H PRN #40 tablet MDD 4 Cephalexin Monohydrate [Keflex -] 500 mg PO Q6HPO #40 capsule MDD 4 03/03/17 Docusate Sodium [Colace] 100 mg PO BID PRN #30 capsule 03/03/17 Erythromycin 0.5% Eye Ointment [Erythromycin 0.5% Eye Ointment -] 1 applic OD HS #1 tube MDD 1 03/03/17 Lactobacillus Acidophilus [Bacid -] 1 tab PO DAILY #30 tab 03/03/17 Valacyclovir HCl [Valtrex -] 1,000 mg PO TID #21 tablet MDD 3 03/03/17 Benzonatate [Tessalon Pearls -] 100 mg PO TID PRN #21 capsule 04/16/17 Guaifenesin [Mucinex -] 600 mg PO BID #14 tablet.er 04/16/17 levoFLOXacin [Levaquin -] 500 mg PO DAILY #7 tablet 04/16/17 Review of Systems - Review of Systems Able to Perform ROS?: Yes Comments:: 04/16/17 14:50 GENERAL/CONSTITUTIONAL: Yes: chills. No: fever, weakness, loss of appetite. HEAD, EYES, EARS, NOSE AND THROAT: No: change in vision, ear pain, discharge, sore throat, throat swelling. CARDIOVASCULAR: Yes: chest tightness, palpitations. No: chest pain, lightheadedness, syncope RESPIRATORY: (+)cough. No: shortness of breath, wheezing, hemoptysis, stridor. GASTROINTESTINAL: No: nausea, vomiting, abdominal cramping, diarrhea, rectal bleeding, constipation. GENITOURINARY: No: dysuria, hematuria, frequency, urgency, flank pain. MUSCULOSKELETAL: No: back pain, neck pain, joint pain, muscle swelling or pain SKIN AND BREASTS: No: lesions, pallor, rash or easy bruising. NEUROLOGIC: No: headache, vertigo, paresthesias, weakness ENDOCRINE: No: unexplained weight gain or loss HEMATOLOGIC/LYMPHATIC: No: anemia, easy bleeding, swelling nodes <Ida Singh - Last Filed: 04/16/17 15:11> *Physical Exam - Vital Signs Last Vital Signs Temp Pulse Resp BP Pulse Ox 98.2 F 68 19 113/53 99 04/16/17 11:07 04/16/17 11:07 04/16/17 11:07 04/16/17 11:07 04/16/17 11:07 - Physical Exam Comments: 04/16/17 15:12 GENERAL: The patient is in no acute distress. HEAD: Normal with no signs of trauma. EYES: PERRLA, EOMI, sclera anicteric, conjunctiva clear. ENT: Ears normal, nares patent, oropharynx clear without exudates. Moist mucous membranes. NECK: Normal range of motion, supple without lymphadenopathy, JVD, or masses. LUNGS: (+)rhonchi at the right base. HEART:Regular rate and rhythm, normal S1 and S2 without murmur, rub or gallop. ABDOMEN: Soft, nontender, normoactive bowel sounds. No guarding, no rebound. EXTREMITIES: Normal range of motion, no edema. No clubbing or cyanosis. No erythema, or tenderness. NEUROLOGICAL: Cranial nerves II through XII grossly intact. Normal speech. No focal neurological deficits. MUSCULOSKELETAL: Back non-tender to palpation, no CVA tenderness SKIN: Warm, Dry, normal turgor, no rashes or lesions noted. <Ida Singh - Last Filed: 04/16/17 15:11> - Vital Signs Last Vital Signs Temp Pulse Resp BP Pulse Ox 98.2 F 68 19 113/53 99 04/16/17 11:07 04/16/17 11:07 04/16/17 11:07 04/16/17 11:07 04/16/17 11:07 <Jessica Knutson - Last Filed: 04/19/17 01:50> ED Treatment Course - LABORATORY CBC & Chemistry Diagram: 04/16/17 12:45 04/16/17 12:45 - ADDITIONAL ORDERS Additional order review: Laboratory Results 04/16/17 04/16/17 04/16/17 12:50 12:45 12:45 PT with INR INR PTT (Actin FS) VBG pH POC VBG pCO2 POC VBG pO2 Mixed VBG HCO3 Sodium Potassium Chloride Carbon Dioxide Anion Gap BUN Creatinine Creat Clearance w eGFR Random Glucose Lactic Acid 0.7 Calcium Total Bilirubin AST ALT Alkaline Phosphatase Creatine Kinase Troponin I Total Protein Albumin Urine Color Yellow Urine Appearance Clear Urine pH 5.0 Ur Specific [place] 1.023 Urine Protein Negative Urine Glucose (UA) Negative Urine Ketones Negative Urine Blood Negative Urine Nitrite Negative Urine Bilirubin Negative Urine Urobilinogen 2.0 Ur Leukocyte Esterase Negative Blood Type O POSITIVE Antibody Screen Negative 04/16/17 04/16/17 04/16/17 12:45 12:45 12:45 PT with INR 13.50 H INR 1.19 H PTT (Actin FS) 32.3 D VBG pH 7.39 POC VBG pCO2 43.3 POC VBG pO2 30.3 Mixed VBG HCO3 25.6 H Sodium 137 Potassium 4.5 Chloride 102 Carbon Dioxide 27 Anion Gap 8 BUN 26 H Creatinine 0.6 L Creat Clearance w eGFR > 60 Random Glucose 94 Lactic Acid Calcium 8.5 Total Bilirubin 0.4 AST 23 ALT 17 Alkaline Phosphatase 90 Creatine Kinase 46 Troponin I < 0.02 Total Protein 6.9 Albumin 3.0 L Urine Color Urine Appearance Urine pH Ur Specific [place] Urine Protein Urine Glucose (UA) Urine Ketones Urine Blood Urine Nitrite Urine Bilirubin Urine Urobilinogen Ur Leukocyte Esterase Blood Type Antibody Screen 04/16/17 12:45 RBC 3.56 L MCV 97.2 H MCHC 32.7 RDW 18.3 H MPV 7.0 L Neutrophils % No Result Required. Lymphocytes % No Result Required. <Ida Singh - Last Filed: 04/16/17 15:11> - LABORATORY CBC & Chemistry Diagram: 04/16/17 12:45 04/16/17 12:45 - ADDITIONAL ORDERS Additional order review: Laboratory Results 04/16/17 04/16/17 04/16/17 12:50 12:45 12:45 PT with INR INR PTT (Actin FS) VBG pH POC VBG pCO2 POC VBG pO2 Mixed VBG HCO3 Sodium Potassium Chloride Carbon Dioxide Anion Gap BUN Creatinine Creat Clearance w eGFR Random Glucose Lactic Acid 0.7 Calcium Total Bilirubin AST ALT Alkaline Phosphatase Creatine Kinase Troponin I Total Protein Albumin Urine Color Yellow Urine Appearance Clear Urine pH 5.0 Ur Specific [place] 1.023 Urine Protein Negative Urine Glucose (UA) Negative Urine Ketones Negative Urine Blood Negative Urine Nitrite Negative Urine Bilirubin Negative Urine Urobilinogen 2.0 Ur Leukocyte Esterase Negative Blood Type O POSITIVE Antibody Screen Negative 04/16/17 04/16/17 04/16/17 12:45 12:45 12:45 PT with INR 13.50 H INR 1.19 H PTT (Actin FS) 32.3 D VBG pH 7.39 POC VBG pCO2 43.3 POC VBG pO2 30.3 Mixed VBG HCO3 25.6 H Sodium 137 Potassium 4.5 Chloride 102 Carbon Dioxide 27 Anion Gap 8 BUN 26 H Creatinine 0.6 L Creat Clearance w eGFR > 60 Random Glucose 94 Lactic Acid Calcium 8.5 Total Bilirubin 0.4 AST 23 ALT 17 Alkaline Phosphatase 90 Creatine Kinase 46 Troponin I < 0.02 Total Protein 6.9 Albumin 3.0 L Urine Color Urine Appearance Urine pH Ur Specific [place] Urine Protein Urine Glucose (UA) Urine Ketones Urine Blood Urine Nitrite Urine Bilirubin Urine Urobilinogen Ur Leukocyte Esterase Blood Type Antibody Screen 04/16/17 12:45 RBC 3.56 L MCV 97.2 H MCHC 32.7 RDW 18.3 H MPV 7.0 L Neutrophils % No Result Required. Lymphocytes % No Result Required. - RADIOLOGY Radiology Studies Ordered: Category Date Time Status CHEST PA & LAT [RAD] Stat Radiology 04/16/17 11:34 Taken <Jessica Knutson - Last Filed: 04/19/17 01:50> Medical Decision Making - Medical Decision Making 04/16/17 14:25 Mr. Gustavo Lopez is an 82-year-old male presented to emergency department with a complaint of cough. Pt states he has a history of atrial fibrillation, on Coumadin, congestive heart failure, prior history of DVT, history of tricuspid region GERD, history of COPD, history of CLL, recent admission for pneumonia in January of 2017 Pt states that he has had a cough and fever No chest pain DD includes: Pneumonia, Bronchitis, Pleural effusion, COPD exacerbation will do labs, CXR, cultures, re assess 04/16/17 14:26 Laboratory Tests 03/02/17 04/16/17 04/16/17 10:55 12:45 12:45 WBC 23.7 H 23.5 H Hgb 11.1 L 11.3 L Hct 34.0 L 34.6 L Plt Count 217 255 Sodium 137 Potassium 4.5 Chloride 102 Carbon Dioxide 27 Anion Gap 8 Creatinine 0.6 L Creatine Kinase 46 Troponin I < 0.02 Urine Blood Urine Nitrite Ur Leukocyte Esterase 04/16/17 12:50 WBC Hgb Hct Plt Count Sodium Potassium Chloride Carbon Dioxide Anion Gap Creatinine Creatine Kinase Troponin I Urine Blood Negative Urine Nitrite Negative Ur Leukocyte Esterase Negative 04/16/17 14:[address] Ospina He agrees with discharge on Levaquin He will see this patient in follow up in 1 week This patient's labs are re assuring - CBC stable, Lactic acid 0.7 This patient's examination is re assuring - No tachypnea, no hypoxia, no fevers CXR: Right lower lobe pleural effusion (stable as compared to prior) I discussed the physical exam findings, ancillary test results and final diagnoses with the patient. I answered all of the patient's questions. The patient was satisfied with the care received and felt comfortable with the discharge plan and treatment plan. The patient will call their primary care physician within 24 hours to arrange follow-up and will return to the Emergency Department with any new, persistent or worsening symptoms. 04/16/17 14:43 <Jessica Knutson - Last Filed: 04/19/17 01:50> *DC/Admit/Observation/Transfer - Attestations Scribe Attestion: 04/16/17 15:15 Documentation prepared by Ida Singh, acting as medical staff credentialing coordinator for Jessica Knutson MD. <Ida Singh - Last Filed: 04/16/17 15:11> - Discharge Dispostion Admit: No <Jessica Knutson - Last Filed: 04/19/17 01:50> Diagnosis at time of Disposition: Upper respiratory infection Qualifiers: URI type: unspecified URI Qualified Code(s): J06.9 - Acute upper respiratory infection, unspecified - Discharge Dispostion Disposition: HOME Condition at time of disposition: Stable - Prescriptions Prescriptions: Benzonatate [Tessalon Pearls -] 100 mg PO TID PRN #21 capsule PRN Reason: Cough Guaifenesin [Mucinex -] 600 mg PO BID #14 tablet.er levoFLOXacin [Levaquin -] 500 mg PO DAILY #7 tablet - Referrals Referrals: Jeyson Ospina MD [Primary Care Provider] - - Patient Instructions Printed Discharge Instructions: How to Take an Oral Temperature, DI for Pneumonia -- Adult, DI for Acute Bronchitis Additional Instructions: Mr Lopez Thank you for coming into the emergency department today. Please monitor yourself for fevers, chills, difficulty breathing, any other concerns or complaints. Please feel free to return to emergency department for any concerning symptoms. Please follow up with Dr. Smith before the end of the week, call him tomorrow to make her appointment - Post Discharge Activity
[2017-04-16 15:04] VITALS: BP 110/65; PULSE 72
[2017-04-16 18:12] LABS: PLATELET ESTIMATE ADEQUATE
--- NOTE | 2017-04-17 17:10 | EKG ---
Test Reason : Blood Pressure : / mmHG Vent. Rate : 074 BPM Atrial Rate : 074 BPM P-R Int : 214 ms QRS Dur : 092 ms QT Int : 400 ms P-R-T Axes : 081 025 066 degrees QTc Int : 444 ms SINUS RHYTHM WITH 1ST DEGREE A-V BLOCK MINIMAL VOLTAGE CRITERIA FOR LVH, MAY BE NORMAL VARIANT CANNOT RULE OUT ANTEROSEPTAL INFARCT (CITED ON OR BEFORE 18-OCT-2015) ABNORMAL ECG WHEN COMPARED WITH ECG OF 02-MAR-2017 10:58, PREMATURE VENTRICULAR COMPLEXES ARE NO LONGER PRESENT Confirmed by JOHNNY DE LA FUENTE MD ([id number]) on 04/17/2017 5:10:09 PM Referred By: Confirmed By:JOHNNY DE LA FUENTE MD
--- NOTE | 2017-04-18 07:21 | PDOC ---
Patient Follow-up (Call Back) - Post ED Follow - Up Condition at time of discharge: Stable Disposition at time of original discharge: HOME Reason for Call Back: Abnwl. Microbiology (UA preliminary results with non- lactose fermenting GNB and lactose fermenting negative bacilli patient was placed on Levaquin secondary to pneumonia. Will await final report.)
--- NOTE | 2017-04-19 07:25 | PDOC ---
Patient Follow-up (Call Back) - Post ED Follow - Up Condition at time of discharge: Stable Disposition at time of original discharge: HOME Reason for Call Back: Abnwl. Microbiology (Urine culture final report shows Citrobacter amalonaticus and Klebsiella Oxytoca which was sensitive to Levaquin. Patient was placed on Levaquin secondary to pneumonia for 7 days upon ED discharge which is adequate coverage for the urinary tract infection. No further intervention is required.)
== END 2017-04-16 15:04 | disposition home or self-care (01) ==
LOC: JER 10:49
DX: J06.9 Acute upper respiratory infection, unspecified (principal); I10 Essential (primary) hypertension; I48.91 Unspecified atrial fibrillation; Z79.01 Long term (current) use of anticoagulants; J44.9 Chronic obstructive pulmonary disease, unspecified; I07.1 Rheumatic tricuspid insufficiency; C91.10 Chronic lymphocytic leukemia of B-cell type not having achieved remission
CPT/HCPCS: 36415; 71046-TC-FY; 80053; 81003; 82550; 82803; 83605; 84484; 85025; 85610; 85730; 86850; 86900; 86901; 87040; 87086; 87186; 93005; 93010; 99283-25

== ENCOUNTER 2017-09-07 07:37 | Inpatient (IN) | payer OTHER ==
[2017-09-07 08:50] LABS: BASO % 0.4 % (0-2.0); EOS % 0.4 % (0-4.5); HEMATOCRIT 33.8 % (35.4-49); HEMOGLOBIN 11.1 GM/dL (11.7-16.9); LYMPH % 68.6 % (8-40); MCH 31.2 pg (25.7-33.7); MCHC 32.8 g/dl (32.0-35.9); MEAN CELL VOLUME 95.2 fl (80-96); MONO % 3.9 % (3.8-10.2); NEUT % 26.7 % (42.8-82.8); PLATELET COUNT 297 K/MM3 (134-434); RBC 3.55 M/mm3 (4.00-5.60); RDW 18.7 % (11.9-15.9)
[2017-09-07] MEDS ORDERED: ACETAMINOPHEN 1000 MG/100 ML VIAL (NON FORMULARY) IVPB ONE (08:56)
[2017-09-07] MEDS ORDERED: ACETAMINOPHEN INJECTION 100 ML IVPB ONE (08:57)
[2017-09-07 08:59] LABS: WHITE BLOOD COUNT 36.7 K/mm3 (4.0-10.0)
[2017-09-07 09:10] LABS: INR 1.37 (0.82-1.09); PROTHROMBIN TIME (PATIENT) 15.5 SEC (9.7-13.0)
[2017-09-07 09:11] LABS: VENOUS PC02 45.2 mmHg (38-52); VENOUS PH 7.38 (7.32-7.42); VENOUS PO2 18.1 mmHg (28-48)
[2017-09-07 09:12] LABS: ACTIVATED PTT 28.8 SECONDS (25.2-36.5)
--- NOTE | 2017-09-07 09:14 | PDOC ---
History of Present Illness - General Chief Complaint: Shortness of Breath Stated Complaint: FLUID IN LUNGS Time Seen by Provider: 09/07/17 08:23 History Source: Patient Exam Limitations: No Limitations - History of Present Illness Initial Comments: 09/07/17 09:13 The patient is an 82M with a PMH of AFIB (on Xarelto), COPD, pleural effusion, tricuspid regurgitation, HTN, and Leukemia who presents to the ER with worsening cough and weakness. The patient states that he's had a cough with fevers for 1 week. 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 Anthony who prescribed him azithromycin. He states that he has continued to worsen with a productive cough with green sputum and fevers. He denies CP, nausea, vomiting, but admits to orthopnea. Past History - Past Medical History Allergies/Adverse Reactions: Allergies Allergy/AdvReac Type Severity Reaction Status Date / Time Penicillins Allergy Rash Verified 09/07/17 07:40 Home Medications: Ambulatory Orders Azithromycin 250 mg PO DAILY 09/07/17 Erythromycin 0.5% Eye Ointment [Erythromycin 0.5% Eye Ointment -] 1 applic OD HS 09/07/17 Ramipril [Altace] 2.5 mg PO DAILY 09/07/17 Rivaroxaban [Xarelto -] 20 mg PO DAILY 09/07/17 Sotalol HCl [Betapace] 80 mg PO DAILY 09/07/17 Anemia: Yes Cancer: (CLL) Cardiac Disorders: Yes (A Fib) COPD: Yes CHF: No HTN: Yes Hypercholesterolemia: Yes - Surgical History Abdominal Surgery: Yes (hernia) - Suicide/Smoking/Psychosocial Hx Smoking Status: Yes Smoking History: Never smoked Have you smoked in the past 12 months: No Number of Cigarettes Smoked Daily: 0 Hx Alcohol Use: No Drug/Substance Use Hx: No Substance Use Type: None Hx Substance Use Treatment: No Review of Systems - Review of Systems Able to Perform ROS?: Yes Comments:: 09/07/17 09:18 GENERAL/CONSTITUTIONAL: Positive for fever. No chills. No weakness. HEAD, EYES, EARS, NOSE AND THROAT: No change in vision. No ear pain or discharge. No sore throat. CARDIOVASCULAR: No chest pain, palpitations, or lightheadedness. RESPIRATORY: Positive for cough and shortness of breath. No wheezing or hemoptysis. GASTROINTESTINAL: No nausea, vomiting, diarrhea, constipation, or abdominal pain. GENITOURINARY: No dysuria, frequency, hematuria, or change in urination. MUSCULOSKELETAL: No joint or muscle swelling or pain. No neck or back pain. SKIN: No rash or lesions. NEUROLOGIC: No headache, numbness, tingling, weakness, loss of consciousness, or change in strength/sensation. ENDOCRINE: No increased thirst. No abnormal weight change. HEMATOLOGIC/LYMPHATIC: No anemia, easy bleeding, or history of blood clots. ALLERGIC/IMMUNOLOGIC: No hives or skin allergy. Is the patient limited Telugu proficient: No *Physical Exam - Vital Signs Last Vital Signs Temp Pulse Resp BP Pulse Ox 101.5 F H 113 H 20 138/78 98 09/07/17 08:40 09/07/17 07:38 09/07/17 07:38 09/07/17 07:38 09/07/17 08:05 - Physical Exam Comments: 09/07/17 09:21 GENERAL: Well developed, well nourished. Awake and alert. No acute distress. HEENT: Normocephalic, atraumatic. Hearing grossly normal. Moist mucous membranes. PERRLA, EOMI. No conjunctival pallor. Sclera are non-icteric. NECK: Supple. Full ROM. No JVD. CARDIOVASCULAR: Regular rate and rhythm. No murmurs, rubs, or gallops. PULMONARY: No evidence of respiratory distress. Lungs clear to auscultation bilaterally. No wheezing, rales or rhonchi. ABDOMINAL: Soft. Non-tender. Non-distended. No rebound or guarding. GENITOURINARY: No CVA tenderness bilaterally. MUSCULOSKELETAL: Normal range of motion at all joints. No bony deformities or tenderness. EXTREMITIES: No cyanosis. No clubbing. No edema. No calf tenderness or swelling. SKIN: Warm and dry. Normal capillary refill. No rashes. No jaundice. NEUROLOGICAL: Alert, awake, appropriate. Cranial nerves 2-12 intact. Normal speech. PSYCHIATRIC: Cooperative. Good eye contact. Appropriate mood and affect. Heart Score/ECG Review #1 General ECG Interpretation: Sinus Rhythm, Normal Rate, Normal Intervals, No acute ischemic changes Compared to previous ECG there are: Changes noted 09/07/17 09:24 NSR/borderline tachycardic vent rate 100 IA 166 QRS 84 QTc 403 No STD or SRI PVCs noted ED Treatment Course - LABORATORY CBC & Chemistry Diagram: 09/07/17 08:30 09/07/17 08:30 - ADDITIONAL ORDERS Additional order review: Laboratory Results 09/07/17 08:30 VBG pH 7.38 POC VBG pCO2 45.2 POC VBG pO2 18.1 L* D Mixed VBG HCO3 26.0 H 09/07/17 08:30 RBC 3.55 L MCV 95.2 MCHC 32.8 RDW 18.7 H MPV 7.0 L Neutrophils % 26.7 L D Lymphocytes % 68.6 H Monocytes % 3.9 Eosinophils % 0.4 Basophils % 0.4 - Medications Given in the ED: ED Medications Discontinued Medications Generic Name Dose Route Start Last Admin Trade Name Freq PRN Reason Stop Dose Admin Acetaminophen 1,000 mg 09/07/17 08:56 09/07/17 09:05 Ofirmev Injection - IVPB 09/07/17 08:57 1,000 mg ONCE ONE Administration Medical Decision Making - Medical Decision Making 09/07/17 09:25 The patient is an 82M with a PMH of COPD w/ repeat PNA's and pleural effusions. Pt came in febrile and borerline tachycardic. Septic protocol is being followed. Pt is receiving fluids and will be receiving abx after d/w PCP. Paged Dr. Anthony. 09/07/17 09:46 Dr. Anthony recommends d/c azithro and agrees with ceftriaxone. Will page Dr. Ospina for admission. 09/07/17 09:56 I have endorsed the patient to Dr. Ospina for admission. *DC/Admit/Observation/Transfer Diagnosis at time of Disposition: Pneumonia Qualifiers: Pneumonia type: due to unspecified organism Laterality: unspecified laterality Lung location: unspecified part of lung Qualified Code(s): J18.9 - Pneumonia, unspecified organism - Discharge Dispostion Condition at time of disposition: Guarded Decision to Admit order: Yes - Referrals Referrals: Jeyson Ospina MD [Primary Care Provider] - - Patient Instructions - Post Discharge Activity
[2017-09-07] MEDS ORDERED: SODIUM CHLORIDE 0.9% 1000 ML INFUS.BAG IV ONE (09:17)
[2017-09-07 09:31] LABS: BLOOD UREA NITROGEN 22 mg/dL (7-18); CALCIUM 8.5 mg/dL (8.5-10.1); CO2 25 mmol/L (21-32); CREATININE 0.7 mg/dL (0.7-1.3)
[2017-09-07] MEDS ORDERED: CEFTRIAXONE 1,000 MG in DEXTROSE 5%-WATER - 50 ML IVPB ONE ×2 (09:37→09:43)
[2017-09-07] MEDS ORDERED: CEFTRIAXONE 1 GM/50 ML BAG ONE (09:47)
[2017-09-07 09:51] LABS: URINE APPEARANCE SLCLOUDY; URINE BILIRUBIN NEGATIVE (<2.0 mg/dL); URINE COLOR AMBER; URINE GLUCOSE (UA) NEGATIVE (NEGATIVE); URINE KETONE NEGATIVE (NEGATIVE); URINE LEUK ESTERASE NEGATIVE (NEGATIVE); URINE NITRITE NEGATIVE (NEGATIVE)
[2017-09-07 09:53] LABS: URINE PROTEIN 1+ (NEGATIVE)
[2017-09-07 09:54] LABS: EPI CELLS RARE /HPF (FEW); URINE MUCUS MANY
--- NOTE | 2017-09-07 10:08 | PDOC ---
Attending Attestation - Resident Resident Name: PardeepbobbyDiego - ED Attending Attestation I have performed the following: I have examined & evaluated the patient, The case was reviewed & discussed with the resident, I agree w/resident's findings & plan, Exceptions are as noted - HPI HPI: 09/07/17 09:45 82M with a PMH of AFIB (on Xarelto), COPD, pleural effusion, tricuspid regurgitation, HTN, and CLL (not on chemo) presents to the ED with worsening productive cough despite outpt azithromycin. Pt febrile in ED rectally to 101.5. +SOB, denies CP, abd pain, focal weakness, LE edema, N/V/D. - Physicial Exam PE: 09/07/17 09:47 GENERAL: Awake, alert, and fully oriented, in no acute distress HEAD: No signs of trauma EYES: PERRLA, EOMI, sclera anicteric, conjunctiva clear ENT: hard of hearing L>R, oropharynx clear without exudates. Moist mucosa LUNGS: diminshed BS on the R HEART: Regular rate and rhythm, normal S1 and S2, no murmurs, rubs or gallops ABDOMEN: Soft, nontender, normoactive bowel sounds. No guarding, no rebound. No masses EXTREMITIES: Normal range of motion, no edema NEUROLOGICAL: Normal speech, cranial nerves intact, negative pronator drift, 5/ 5 strength in all 4 extremities, normal sensation to light touch in all 4 extremities SKIN: Warm, Dry, normal turgor, no rashes or lesions noted. - Medical Decision Making 09/07/17 10:08 82yo M with MMP including CLL (not on chemo or tx) presents to the ED with persistent productive cough, fever, despite 3 days of azithromycin. Exam with diminished BS on the R. Likely PNA. Will cover with abx, consult ID and admit.
[2017-09-07 10:10] LABS: GLUCOSE,RANDOM 142 mg/dL (74-106)
[2017-09-07 10:11] LABS: ALK PHOS 98 U/L (45-117); ANION GAP 11 (8-16); BILIRUBIN,TOTAL 0.5 mg/dL (0.2-1.0); CHLORIDE 100 mmol/L (98-107); POTASSIUM 4.3 mmol/L (3.5-5.1); SGOT/AST 17 U/L (15-37); SGPT/ALT 14 U/L (12-78); SODIUM 136 mmol/L (136-145)
[2017-09-07 10:18] LABS: ACANTHOCYTES 1+; PLATELET ESTIMATE NORMAL
[2017-09-07 12:10] VITALS: BMI 19.5
--- NOTE | 2017-09-07 14:41 | EKG ---
Test Reason : Blood Pressure : / mmHG Vent. Rate : 098 BPM Atrial Rate : 098 BPM P-R Int : 166 ms QRS Dur : 084 ms QT Int : 316 ms P-R-T Axes : 055 004 049 degrees QTc Int : 403 ms SINUS RHYTHM WITH OCCASIONAL PREMATURE VENTRICULAR COMPLEXES OTHERWISE NORMAL ECG WHEN COMPARED WITH ECG OF 16-APR-2017 13:28, PREMATURE VENTRICULAR COMPLEXES ARE NOW PRESENT AK INTERVAL HAS DECREASED MINIMAL CRITERIA FOR ANTEROSEPTAL INFARCT ARE NO LONGER PRESENT Confirmed by Usman Sheikh ([id number]) on 09/07/2017 2:41:41 PM Referred By: Confirmed By:Usman Sheikh
--- NOTE | 2017-09-07 15:19 | HP ---
Admitting History and Physical - Primary Care Physician PCP: Jeyson Ospina - Admission Chief Complaint: Cough History of Present Illness: Pt developed a cough last weekend, saw Dr. Bar on Saturday (was sent for Lung CT scan) and started on Azithromycin. Pt didn't feel better, cough got worse and came to ER. Pt states that stopped Xarelto yesterday, as as was told that needs thoracenthesis. History Source: Patient - Past Medical History Cardiovascular: Yes: AFIB (on AC), CHF, Deep Vein Thrombosis, Other (TR) Pulmonary: Yes: COPD, Pneumonia, Other (Pleural effusion, s/p thoracentesis) Heme/Onc: Yes: Anemia, Cancer (CLL; per pt. latest WBC 60K) - Smoking History Smoking history: Never smoked Have you smoked in the past 12 months: No Aproximately how many cigarettes per day: 0 - Alcohol/Substance Use Hx Alcohol Use: No - Social History History of Recent Travel: No Home Medications - Allergies Allergies/Adverse Reactions: Allergies Allergy/AdvReac Type Severity Reaction Status Date / Time Penicillins Allergy Rash Verified 09/07/17 07:40 - Home Medications Home Medications: Ambulatory Orders Erythromycin 0.5% Eye Ointment [Erythromycin 0.5% Eye Ointment -] 1 applic OD HS 09/07/17 RX: Azithromycin 250 mg PO DAILY 09/07/17 Ramipril [Altace] 2.5 mg PO DAILY 09/07/17 Rivaroxaban [Xarelto -] 20 mg PO DAILY 09/07/17 Sotalol HCl [Betapace] 80 mg PO DAILY 09/07/17 Review of Systems - Review of Systems Constitutional: denies: Chills, Fever Eyes: denies: Blurred Vision, Double Vision, Recent Change in Vision HENT: denies: Ear Discharge, Ear Pain, Nasal Congestion, Throat Pain Neck: denies: Pain on Movement, Stiffness Cardiovascular: denies: Chest Pain, Edema, Palpitations Respiratory: reports: SOB on Exertion. denies: Cough, Wheezing Gastrointestinal: denies: Abdominal Pain, Constipation Genitourinary: denies: Burning, Discharge, Dysuria Musculoskeletal: denies: Back Pain, Joint Swelling, Muscle Pain Integumentary: denies: Bruising, Rash Neurological: denies: Change in LOC, Numbness, Unsteady Gait Endocrine: denies: Excessive Sweating, Intolerance to Cold Hematology/Lymphatic: denies: Easily Bruised, Excessive Bleeding Psychiatric: denies: Altered Sleep Pattern, Anxiety, Depression Physical Examination Vital Signs: Vital Signs Temperature 98.0 F 09/07/17 14:47 Pulse Rate 87 09/07/17 14:47 Respiratory Rate 16 09/07/17 14:47 Blood Pressure 121/63 09/07/17 14:47 O2 Sat by Pulse Oximetry (%) 98 09/07/17 12:01 Constitutional: Yes: No Distress, Calm Eyes: Yes: Conjunctiva Clear, EOM Intact, PERRL HENT: Yes: Normocephalic. No: Epistaxis, Rhinnorhea Neck: Yes: Trachea Midline. No: Lymphadenopathy Cardiovascular: Yes: Pulse Irregular, S1, S2 Respiratory: Yes: Regular, CTA Bilaterally, Rhonchi Gastrointestinal: Yes: Normal Bowel Sounds, Soft (L lower lung; R lung BS decreased at base and 1/3 up). No: Tenderness ...Rectal Exam: Yes: Deferred Renal/: No: CVA Tenderness - Left, CVA Tenderness - Right Musculoskeletal: No: Back Pain, Joint Swelling Extremities: No: Cold, Cool, Cyanosis Edema: No Integumentary: No: Erythema, Jaundice, Rash Neurological: Yes: Alert, Oriented, Other (motor and sensory examination is symmetric in UE/ LE/ face) Psychiatric: Yes: Alert, Oriented Labs: CBC, BMP 09/07/17 08:30 09/07/17 08:30 Imaging - Results Chest X-ray: Report Reviewed, Image Reviewed Problem List - Problems (1) Pneumonia Code(s): J18.9 - PNEUMONIA, UNSPECIFIED ORGANISM Qualifiers: Pneumonia type: due to unspecified organism Laterality: unspecified laterality Lung location: unspecified part of lung Qualified Code(s): J18.9 - Pneumonia, unspecified organism (2) Pleural effusion Code(s): J90 - PLEURAL EFFUSION, NOT ELSEWHERE CLASSIFIED (3) CLL (chronic lymphocytic leukemia) Code(s): C91.10 - CHRONIC LYMPHOCYTIC LEUK OF B-CELL TYPE NOT ACHIEVE REMIS (4) Paroxysmal atrial fibrillation Code(s): I48.0 - PAROXYSMAL ATRIAL FIBRILLATION Assessment/Plan Ceftriaxone IV Pulmonary consult. Hold Xarelto untill confirm with Pulmonary about thoracenthesis. AM labs
[2017-09-07] MEDS: SOTALOL HCL 80 MG TABLET (FP) PO SCH (16:55)
[2017-09-07] MEDS ORDERED: RIVAROXABAN 20 MG TABLET PO ONE (17:15)
[2017-09-07] MEDS ORDERED: RIVAROXABAN 20 MG TABLET PO SCH (18:00)
[2017-09-07] MEDS: ERYTHROMYCIN 0.5% OPHTHALMIC OINTMENT 3.5 GM TUBE OD SCH (21:19)
[2017-09-08 07:30] LABS: HEMATOCRIT 30.7 % (35.4-49); MCH 31.4 pg (25.7-33.7); MCHC 32.6 g/dl (32.0-35.9); MEAN CELL VOLUME 96.3 fl (80-96); MEAN PLT VOLUME 7.3 fl (7.5-11.1); PLATELET COUNT 258 K/MM3 (134-434); RBC 3.19 M/mm3 (4.00-5.60); RDW 18.6 % (11.9-15.9); WHITE BLOOD COUNT 27.2 K/mm3 (4.0-10.0)
[2017-09-08 08:00] LABS: ALBUMIN 2.5 g/dl (3.4-5.0); ALK PHOS 87 U/L (45-117); ANION GAP 9 (8-16); BILIRUBIN,TOTAL 0.4 mg/dL (0.2-1.0); BLOOD UREA NITROGEN 16 mg/dL (7-18); CALCIUM 8.2 mg/dL (8.5-10.1); CHLORIDE 104 mmol/L (98-107); CO2 26 mmol/L (21-32); CREATININE 0.6 mg/dL (0.7-1.3); GLUCOSE,RANDOM 91 mg/dL (74-106); POTASSIUM 4.6 mmol/L (3.5-5.1); SGOT/AST 15 U/L (15-37); SGPT/ALT 13 U/L (12-78); SODIUM 139 mmol/L (136-145); TOT PROT 6.1 g/dl (6.4-8.2)
--- NOTE | 2017-09-08 09:25 | CON.PULM ---
Consult Consult Specialty:: PULMONARY Referred by:: SOFIYA Reason for Consultation:: PLEURAL EFFUSION - History of Present Illness Chief Complaint: SOB History of Present Illness: The patient is an 82M with a PMH of AFIB (on Xarelto), COPD, pleural effusion, tricuspid regurgitation, HTN, and Leukemia who presents to the ER with worsening cough and weakness. The patient states that he's had a cough with fevers for 1 week. 3 days ago he saw his PCP who prescribed azithromycin. He states that he has continued to worsen with a productive cough with green sputum and fevers. He denies CP, nausea, vomiting, but admits to orthopnea. Patient has a chronic right pl effusion which was tapped in the past and thought to be related to his underlying leukemia. It has since increased in volume and will be re-tapped during this admission. His a/c will be held for 48 hours. 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 Cardio/Vascular: Yes: AFIB (on AC), CHF, Deep Vein Thrombosis, Other (TR) Pulmonary: Yes: COPD, Pneumonia, Other (Pleural effusion, s/p thoracentesis) Gastrointestinal: No: Ascites Hepatobiliary: No: Cirrhosis Renal/: No: Renal Failure Heme/Onc: Yes: Anemia, Other (CLL) - Alcohol/Substance Use Hx Alcohol Use: No - Smoking History Smoking history: Never smoked Have you smoked in the past 12 months: No Aproximately how many cigarettes per day: 0 - Social History History of Recent Travel: No Home Medications - Allergies Allergies/Adverse Reactions: Allergies Allergy/AdvReac Type Severity Reaction Status Date / Time Penicillins Allergy Rash Verified 09/07/17 07:40 - Home Medications Home Medications: Ambulatory Orders Azithromycin 250 mg PO DAILY 09/07/17 Erythromycin 0.5% Eye Ointment [Erythromycin 0.5% Eye Ointment -] 1 applic OD HS 09/07/17 Ramipril [Altace] 2.5 mg PO DAILY 09/07/17 Rivaroxaban [Xarelto -] 20 mg PO DAILY 09/07/17 Sotalol HCl [Betapace] 80 mg PO DAILY 09/07/17 Family Disease History - Family Disease History Family History: Unremarkable Review of Systems - Review of Systems Constitutional: denies: Chills, Fever Cardiovascular: reports: Shortness of Breath Respiratory: reports: Cough, Exercise Intolerance, SOB, SOB on Exertion. denies : Hemoptysis, Wheezing Genitourinary: reports: No Symptoms Breasts: reports: No Symptoms Reported Musculoskeletal: reports: No Symptoms Integumentary: reports: No Symptoms Physical Exam Vital Sings: Vital Signs Temperature 98.9 F 09/08/17 06:00 Pulse Rate 88 09/08/17 06:00 Respiratory Rate 20 09/08/17 06:00 Blood Pressure 109/66 09/08/17 06:00 O2 Sat by Pulse Oximetry (%) 98 09/07/17 21:00 Constitutional: Yes: Calm Eyes: Yes: EOM Intact HENT: Yes: Normocephalic Neck: Yes: Trachea Midline Cardiovascular: Yes: S1, S2 Respiratory: Yes: Diminished (right base up 1/4 lung field) Edema: No Neurological: Yes: Alert Psychiatric: Yes: Alert Labs: CBC, BMP 09/08/17 06:00 09/08/17 06:00 REST REVIEWED Imaging - Results Chest X-ray: Report Reviewed, Image Reviewed Cat Scan: Report Reviewed, Image Reviewed Problem List - Problems (1) Anemia Code(s): D64.9 - ANEMIA, UNSPECIFIED (2) Atrial fibrillation Code(s): I48.91 - UNSPECIFIED ATRIAL FIBRILLATION (3) CLL (chronic lymphocytic leukemia) Code(s): C91.10 - CHRONIC LYMPHOCYTIC LEUK OF B-CELL TYPE NOT ACHIEVE REMIS (4) DVT (deep venous thrombosis) Code(s): I82.409 - ACUTE EMBOLISM AND THOMBOS UNSP DEEP VN UNSP LOWER EXTREMITY Qualifiers: DVT location: lower extremity Affected thrombotic vein of extremity: popliteal Chronicity: chronic Laterality: right Qualified Code(s): I82.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
--- NOTE | 2017-09-08 09:53 | PN ---
Progress Note, Physician History of Present Illness: Pt's breathing is better, his cough is diminished. Pt w/o SOB, CP, palpitations, abd pain - Current Medication List Current Medications: Active Medications Erythromycin (Erythromycin 0.5% Eye Ointment) 1 applic OD HS REPLACED BY [facility] Last Admin: 09/07/17 21:19 Dose: 1 applic Ceftriaxone Sodium 1 gm/ (Dextrose) 50 mls @ 100 mls/hr IVPB DAILY [facility]; Protocol Ramipril (Altace -) 2.5 mg PO DAILY [facility] Sotalol HCl (Betapace -) 80 mg PO DAILY [facility] Last Admin: 09/07/17 16:55 Dose: Not Given - Objective Vital Signs: Vital Signs Temperature 98.9 F 09/08/17 06:00 Pulse Rate 88 09/08/17 06:00 Respiratory Rate 20 09/08/17 06:00 Blood Pressure 109/66 09/08/17 06:00 O2 Sat by Pulse Oximetry (%) 98 09/07/17 21:00 Constitutional: Yes: No Distress, Calm Cardiovascular: Yes: Regular Rate and Rhythm, S1, S2 Respiratory: Yes: Regular, Rhonchi (bilat.), Other (decreased BS on right side , 1/[address] way up) Gastrointestinal: Yes: Normal Bowel Sounds, Soft. No: Tenderness Edema: No Neurological: Yes: Alert, Oriented Labs: CBC, BMP 09/08/17 06:00 09/08/17 06:00 INR, PTT INR 1.37 (0.82-1.09) H 09/07/17 08:30 Problem List - Problems (1) Pneumonia Code(s): J18.9 - PNEUMONIA, UNSPECIFIED ORGANISM Qualifiers: Pneumonia type: due to unspecified organism Laterality: unspecified laterality Lung location: unspecified part of lung Qualified Code(s): J18.9 - Pneumonia, unspecified organism (2) Pleural effusion Code(s): J90 - PLEURAL EFFUSION, NOT ELSEWHERE CLASSIFIED (3) CLL (chronic lymphocytic leukemia) Code(s): C91.10 - CHRONIC LYMPHOCYTIC LEUK OF B-CELL TYPE NOT ACHIEVE REMIS (4) Paroxysmal atrial fibrillation Code(s): I48.0 - PAROXYSMAL ATRIAL FIBRILLATION Assessment/Plan Pt clinically is better, labs are better. Cont. Ceftriaxone IV Pulmonary consult appreciated AM labs
[2017-09-08] MEDS ORDERED: DEXTROSE 5%-WATER - 50 ML IVPB ONE (10:24)
[2017-09-08] MEDS ORDERED: cefTRIAXone SODIUM 1 GM VIAL ONE (10:24)
[2017-09-08] MEDS: SOTALOL HCL 80 MG TABLET (FP) PO SCH (10:32)
[2017-09-08] MEDS: CEFTRIAXONE 1 GM in DEXTROSE 5%-WATER - 50 ML IVPB SCH (10:32)
[2017-09-08] MEDS: RAMIPRIL 2.5 MG CAPSULE (FP) PO SCH (10:32)
[2017-09-08] MEDS ORDERED: PT OWN MED DRAWER 7, Y5N ONE (21:39)
[2017-09-08] MEDS: ERYTHROMYCIN 0.5% OPHTHALMIC OINTMENT 3.5 GM TUBE OD SCH (21:44)
[2017-09-09 07:48] LABS: HEMATOCRIT 30.4 % (35.4-49); HEMOGLOBIN 10.1 GM/dL (11.7-16.9); MCH 31.7 pg (25.7-33.7); MCHC 33.3 g/dl (32.0-35.9); MEAN CELL VOLUME 95.1 fl (80-96); PLATELET COUNT 281 K/MM3 (134-434); RDW 18.5 % (11.9-15.9); WHITE BLOOD COUNT 25.7 K/mm3 (4.0-10.0)
[2017-09-09 08:11] LABS: ALBUMIN 2.5 g/dl (3.4-5.0); ANION GAP 6 (8-16); BLOOD UREA NITROGEN 14 mg/dL (7-18); CALCIUM 8.7 mg/dL (8.5-10.1); CHLORIDE 101 mmol/L (98-107); CO2 30 mmol/L (21-32); GLUCOSE,RANDOM 94 mg/dL (74-106); POTASSIUM 4.4 mmol/L (3.5-5.1); SGOT/AST 20 U/L (15-37); SGPT/ALT 17 U/L (12-78); SODIUM 137 mmol/L (136-145)
[2017-09-09 08:13] LABS: ALK PHOS 82 U/L (45-117); BILIRUBIN,TOTAL 0.3 mg/dL (0.2-1.0); CREATININE 0.5 mg/dL (0.7-1.3); TOT PROT 6.1 g/dl (6.4-8.2)
[2017-09-09] MEDS ORDERED: cefTRIAXone SODIUM 1 GM VIAL ONE (09:23)
[2017-09-09] MEDS ORDERED: DEXTROSE 5%-WATER - 50 ML IVPB ONE (09:24)
[2017-09-09] MEDS: CEFTRIAXONE 1 GM in DEXTROSE 5%-WATER - 50 ML IVPB SCH (09:28)
[2017-09-09] MEDS: RAMIPRIL 2.5 MG CAPSULE (FP) PO SCH (09:28)
[2017-09-09] MEDS: SOTALOL HCL 80 MG TABLET (FP) PO SCH (09:28)
--- NOTE | 2017-09-09 11:18 | PN ---
Progress Note (short form) - Note Progress Note: PULMONARY States breathing better today. No fevers or chills. Vital Signs Period Temp Pulse Resp BP Sys/Marcum Pulse Ox Last 24 Hr 98.4 F-98.8 F 73-87 18-20 122-134/52-66 98 Gen: NAD at rest Heart: irregular Lung: decreased breath sounds right base Abd: soft, nontender Ext: no edema CBC, BMP 09/09/17 06:55 09/09/17 06:55 Active Medications Erythromycin (Erythromycin 0.5% Eye Ointment) 1 applic OD HS [facility] Last Admin: 09/08/17 21:44 Dose: 1 applic Ceftriaxone Sodium 1 gm/ (Dextrose) 50 mls @ 100 mls/hr IVPB DAILY [facility]; Protocol Last Admin: 09/09/17 09:28 Dose: 100 mls/hr Ramipril (Altace -) 2.5 mg PO DAILY [facility] Last Admin: 09/09/17 09:28 Dose: 2.5 mg Sotalol HCl (Betapace -) 80 mg PO DAILY [facility] Last Admin: 09/09/17 09:28 Dose: 80 mg A/P Right Pleural Effusion Atrial Fibrillation CLL Anemia COPD - on empiric antibiotics - rate controlled - holding anticoagulation for thoracentesis - DVT prophylaxis
--- NOTE | 2017-09-09 13:39 | PN ---
Progress Note, Physician History of Present Illness: Pt's breathing is better, his cough is diminished (occasionally brings up sputum ). Pt w/o fever, SOB, CP, palpitations, abd pain. - Current Medication List Current Medications: Active Medications Erythromycin (Erythromycin 0.5% Eye Ointment) 1 applic OD HS [facility] Last Admin: 09/08/17 21:44 Dose: 1 applic Ceftriaxone Sodium 1 gm/ (Dextrose) 50 mls @ 100 mls/hr IVPB DAILY [facility]; Protocol Last Admin: 09/09/17 09:28 Dose: 100 mls/hr Ramipril (Altace -) 2.5 mg PO DAILY [facility] Last Admin: 09/09/17 09:28 Dose: 2.5 mg Sotalol HCl (Betapace -) 80 mg PO DAILY [facility] Last Admin: 09/09/17 09:28 Dose: 80 mg - Objective Vital Signs: Vital Signs Temperature 98.6 F 09/09/17 06:00 Pulse Rate 87 09/09/17 06:00 Respiratory Rate 18 09/09/17 06:00 Blood Pressure 122/66 09/09/17 06:00 O2 Sat by Pulse Oximetry (%) 98 09/08/17 21:00 Constitutional: Yes: No Distress, Calm Cardiovascular: Yes: Regular Rate and Rhythm, S1, S2 Respiratory: Yes: Regular, Rhonchi, Other (decrease BS at right base) Gastrointestinal: Yes: Normal Bowel Sounds, Soft. No: Tenderness Edema: No Neurological: Yes: Alert, Oriented Labs: CBC, BMP 09/09/17 06:55 09/09/17 06:55 INR, PTT INR 1.37 (0.82-1.09) H 09/07/17 08:30 Problem List - Problems (1) Pneumonia Code(s): J18.9 - PNEUMONIA, UNSPECIFIED ORGANISM Qualifiers: Pneumonia type: due to unspecified organism Laterality: unspecified laterality Lung location: unspecified part of lung Qualified Code(s): J18.9 - Pneumonia, unspecified organism (2) Pleural effusion Code(s): J90 - PLEURAL EFFUSION, NOT ELSEWHERE CLASSIFIED (3) CLL (chronic lymphocytic leukemia) Code(s): C91.10 - CHRONIC LYMPHOCYTIC LEUK OF B-CELL TYPE NOT ACHIEVE REMIS (4) Paroxysmal atrial fibrillation Code(s): I48.0 - PAROXYSMAL ATRIAL FIBRILLATION
[2017-09-09] MEDS ORDERED: PT OWN MED DRAWER 7, Y5N ONE (21:15)
[2017-09-09] MEDS ORDERED: ACETAMINOPHEN 325 MG TABLET (FP) PO PRN (21:31)
[2017-09-09] MEDS: ERYTHROMYCIN 0.5% OPHTHALMIC OINTMENT 3.5 GM TUBE OD SCH (21:44)
[2017-09-10 08:13] LABS: HEMOGLOBIN 10.5 GM/dL (11.7-16.9); MCH 31.3 pg (25.7-33.7); MCHC 32.8 g/dl (32.0-35.9); MEAN CELL VOLUME 95.2 fl (80-96); MEAN PLT VOLUME 6.9 fl (7.5-11.1); PLATELET COUNT 302 K/MM3 (134-434); RBC 3.37 M/mm3 (4.00-5.60); RDW 18.2 % (11.9-15.9); WHITE BLOOD COUNT 25.4 K/mm3 (4.0-10.0)
[2017-09-10 08:32] LABS: INR 1.26 (0.82-1.09); PROTHROMBIN TIME (PATIENT) 14.2 SEC (9.7-13.0)
[2017-09-10 08:43] LABS: ALBUMIN 2.6 g/dl (3.4-5.0); ANION GAP 6 (8-16); BLOOD UREA NITROGEN 17 mg/dL (7-18); CALCIUM 8.7 mg/dL (8.5-10.1); CHLORIDE 104 mmol/L (98-107); CO2 30 mmol/L (21-32); CREATININE 0.5 mg/dL (0.7-1.3); GLUCOSE,RANDOM 92 mg/dL (74-106); POTASSIUM 4.2 mmol/L (3.5-5.1); SGOT/AST 19 U/L (15-37); SGPT/ALT 18 U/L (12-78); SODIUM 140 mmol/L (136-145)
[2017-09-10 08:45] LABS: ALK PHOS 91 U/L (45-117); BILIRUBIN,TOTAL 0.3 mg/dL (0.2-1.0); TOT PROT 6.3 g/dl (6.4-8.2)
[2017-09-10] MEDS ORDERED: cefTRIAXone SODIUM 1 GM VIAL ONE (09:12)
[2017-09-10] MEDS ORDERED: DEXTROSE 5%-WATER - 50 ML IVPB ONE (09:13)
[2017-09-10] MEDS: CEFTRIAXONE 1 GM in DEXTROSE 5%-WATER - 50 ML IVPB SCH (09:15)
[2017-09-10] MEDS: SOTALOL HCL 80 MG TABLET (FP) PO SCH (09:15)
[2017-09-10] MEDS: RAMIPRIL 2.5 MG CAPSULE (FP) PO SCH (09:15)
--- NOTE | 2017-09-10 14:20 | PN ---
Progress Note, Physician History of Present Illness: Pt's breathing is better. Pt w/o fever, SOB, CP, palpitations, abd pain. Pt is s/p thoracentesis - Current Medication List Current Medications: Active Medications Acetaminophen (Tylenol -) 650 mg PO Q6H PRN PRN Reason: FEVER Last Admin: 09/09/17 21:48 Dose: 650 mg Erythromycin (Erythromycin 0.5% Eye Ointment) 1 applic OD HS [facility] Last Admin: 09/09/17 21:44 Dose: 1 applic Ceftriaxone Sodium 1 gm/ (Dextrose) 50 mls @ 100 mls/hr IVPB DAILY [facility]; Protocol Last Admin: 09/10/17 09:15 Dose: 100 mls/hr Ramipril (Altace -) 2.5 mg PO DAILY [facility] Last Admin: 09/10/17 09:15 Dose: 2.5 mg Sotalol HCl (Betapace -) 80 mg PO DAILY [facility] Last Admin: 09/10/17 09:15 Dose: 80 mg - Objective Vital Signs: Vital Signs Temperature 98.1 F 09/10/17 08:00 Pulse Rate 83 09/10/17 08:00 Respiratory Rate 20 09/10/17 08:00 Blood Pressure 122/63 09/10/17 08:00 O2 Sat by Pulse Oximetry (%) 98 09/10/17 08:00 Constitutional: Yes: No Distress, Calm Cardiovascular: Yes: Regular Rate and Rhythm, S1, S2 Respiratory: Yes: Regular, Rhonchi (scattered), Other (decreased BS on right side, from base 1/3 up) Gastrointestinal: Yes: Normal Bowel Sounds, Soft. No: Tenderness Edema: No Neurological: Yes: Alert, Oriented Labs: CBC, BMP 09/10/17 07:40 09/10/17 07:40 INR, PTT INR 1.26 (0.82-1.09) H 09/10/17 07:40 Problem List - Problems (1) Pneumonia Code(s): J18.9 - PNEUMONIA, UNSPECIFIED ORGANISM Qualifiers: Pneumonia type: due to unspecified organism Laterality: unspecified laterality Lung location: unspecified part of lung Qualified Code(s): J18.9 - Pneumonia, unspecified organism (2) Pleural effusion Code(s): J90 - PLEURAL EFFUSION, NOT ELSEWHERE CLASSIFIED (3) CLL (chronic lymphocytic leukemia) Code(s): C91.10 - CHRONIC LYMPHOCYTIC LEUK OF B-CELL TYPE NOT ACHIEVE REMIS (4) Paroxysmal atrial fibrillation Code(s): I48.0 - PAROXYSMAL ATRIAL FIBRILLATION (5) Anemia Assessment/Plan: not acute Code(s): D64.9 - ANEMIA, UNSPECIFIED Assessment/Plan To f/u pleural fluid labs Cont. Ceftriaxone IV Pulmonary consult appreciated; to f/u with Pulmonary about further treatment AM labs
[2017-09-10 15:30] LABS: GLUCOSE,PLEURAL FLUID 82.27; TOTAL PROTEIN,PLEURAL FLUID 4.227
[2017-09-10 17:19] LABS: PLEURAL FLUID COLOR RED
[2017-09-10 17:20] LABS: PLEURAL FLUID APPEARANCE BLOODY; PLEURAL FLUID RBC 26882 /mm3
[2017-09-10 17:28] LABS: PLEURAL FLUID LYMPHOCYTES 93 %; PLEURAL FLUID MACROPHAGES 1 %; PLEURAL FLUID MONOCYTE 4 %; PLEURAL FLUID NEUTROPHIL 2 %
[2017-09-10] MEDS ORDERED: PT OWN MED DRAWER 7, Y5N ONE (20:05)
[2017-09-10] MEDS: ERYTHROMYCIN 0.5% OPHTHALMIC OINTMENT 3.5 GM TUBE OD SCH (22:20)
[2017-09-10] MEDS: RIVAROXABAN 20 MG TABLET PO SCH (22:20)
[2017-09-11 07:31] LABS: HEMATOCRIT 30.3 % (35.4-49); MCH 31.5 pg (25.7-33.7); MEAN CELL VOLUME 95.5 fl (80-96); MEAN PLT VOLUME 7.2 fl (7.5-11.1); PLATELET COUNT 293 K/MM3 (134-434); RBC 3.18 M/mm3 (4.00-5.60); RDW 18.8 % (11.9-15.9); WHITE BLOOD COUNT 24.6 K/mm3 (4.0-10.0)
[2017-09-11 07:55] LABS: ALBUMIN 2.5 g/dl (3.4-5.0); ALK PHOS 86 U/L (45-117); ANION GAP 6 (8-16); BILIRUBIN,TOTAL 0.3 mg/dL (0.2-1.0); BLOOD UREA NITROGEN 21 mg/dL (7-18); CALCIUM 8.4 mg/dL (8.5-10.1); CHLORIDE 104 mmol/L (98-107); CO2 28 mmol/L (21-32); CREATININE 0.5 mg/dL (0.7-1.3); GLUCOSE,RANDOM 89 mg/dL (74-106); POTASSIUM 4.2 mmol/L (3.5-5.1); SGOT/AST 18 U/L (15-37); SGPT/ALT 16 U/L (12-78); SODIUM 138 mmol/L (136-145); TOT PROT 5.9 g/dl (6.4-8.2)
[2017-09-11] MEDS ORDERED: PT OWN MED DRAWER 7, Y5N ONE ×3 (10:57→21:27)
[2017-09-11] MEDS ORDERED: cefTRIAXone SODIUM 1 GM VIAL ONE (10:57)
[2017-09-11] MEDS ORDERED: DEXTROSE 5%-WATER - 50 ML IVPB ONE (10:58)
[2017-09-11] MEDS: CEFTRIAXONE 1 GM in DEXTROSE 5%-WATER - 50 ML IVPB SCH (11:17)
[2017-09-11] MEDS: SOTALOL HCL 80 MG TABLET (FP) PO SCH (11:17)
[2017-09-11] MEDS: RAMIPRIL 2.5 MG CAPSULE (FP) PO SCH (11:17)
--- NOTE | 2017-09-11 14:02 | PN ---
Progress Note, Physician History of Present Illness: PULMONARY ALERT,FEELING BETTER,SOB IMPROVED S/P THORACENTESIS. PLEURAL FLUID C/W EXUDATE - Current Medication List Current Medications: Active Medications Acetaminophen (Tylenol -) 650 mg PO Q6H PRN PRN Reason: FEVER Last Admin: 09/09/17 21:48 Dose: 650 mg Erythromycin (Erythromycin 0.5% Eye Ointment) 1 applic OD HS [facility] Last Admin: 09/10/17 22:20 Dose: 1 applic Ceftriaxone Sodium 1 gm/ (Dextrose) 50 mls @ 100 mls/hr IVPB DAILY [facility]; Protocol Last Admin: 09/11/17 11:17 Dose: 100 mls/hr Ramipril (Altace -) 2.5 mg PO DAILY [facility] Last Admin: 09/11/17 11:17 Dose: 2.5 mg Rivaroxaban (Xarelto -) 20 mg PO DAILY@1800 [facility] Last Admin: 09/10/17 22:20 Dose: 20 mg Sotalol HCl (Betapace -) 80 mg PO DAILY [facility] Last Admin: 09/11/17 11:17 Dose: 80 mg - Objective Vital Signs: Vital Signs Temperature 98.3 F 09/11/17 06:00 Pulse Rate 74 09/11/17 06:00 Respiratory Rate 16 09/11/17 06:00 Blood Pressure 106/54 09/11/17 06:00 O2 Sat by Pulse Oximetry (%) 98 09/10/17 22:00 Constitutional: Yes: Well Nourished, Calm Eyes: Yes: WNL HENT: Yes: WNL Neck: Yes: WNL Cardiovascular: Yes: Pulse Irregular, S1, S2 Respiratory: Yes: Diminished (DIMINISHED BS ON R) Gastrointestinal: Yes: Normal Bowel Sounds, Soft Extremities: Yes: WNL Edema: No Labs: CBC, BMP 09/11/17 06:06 09/11/17 06:06 INR, PTT INR 1.26 (0.82-1.09) H 09/10/17 07:40 Problem List - Problems (1) Anemia Code(s): D64.9 - ANEMIA, UNSPECIFIED (2) Atrial fibrillation Code(s): I48.91 - UNSPECIFIED ATRIAL FIBRILLATION (3) CLL (chronic lymphocytic leukemia) Code(s): C91.10 - CHRONIC LYMPHOCYTIC LEUK OF B-CELL TYPE NOT ACHIEVE REMIS (4) History of DVT (deep vein thrombosis) Code(s): Z86.718 - PERSONAL HISTORY OF OTHER VENOUS THROMBOSIS AND EMBOLISM (5) Pleural effusion Code(s): J90 - PLEURAL EFFUSION, NOT ELSEWHERE CLASSIFIED (6) SOB (shortness of breath) Code(s): R06.02 - SHORTNESS OF BREATH Assessment/Plan A/P Right Pleural Effusion Atrial Fibrillation CLL Anemia COPD - oempiric antibiotics - rate controlled - AC - Check pleural fluid cytology DR MANRIQUEZ
--- NOTE | 2017-09-11 14:29 | PN ---
Progress Note, Physician History of Present Illness: Pt's breathing is better than at adminssion/ Pt mentioned that his "night sweats " stopped. Pt w/o fever, SOB, CP, palpitations, abd pain. Pt is s/p thoracentesis on 09/10/17 - Current Medication List Current Medications: Active Medications Acetaminophen (Tylenol -) 650 mg PO Q6H PRN PRN Reason: FEVER Last Admin: 09/09/17 21:48 Dose: 650 mg Erythromycin (Erythromycin 0.5% Eye Ointment) 1 applic OD HS [facility] Last Admin: 09/10/17 22:20 Dose: 1 applic Ceftriaxone Sodium 1 gm/ (Dextrose) 50 mls @ 100 mls/hr IVPB DAILY [facility]; Protocol Last Admin: 09/11/17 11:17 Dose: 100 mls/hr Ramipril (Altace -) 2.5 mg PO DAILY [facility] Last Admin: 09/11/17 11:17 Dose: 2.5 mg Rivaroxaban (Xarelto -) 20 mg PO DAILY@1800 [facility] Last Admin: 09/10/17 22:20 Dose: 20 mg Sotalol HCl (Betapace -) 80 mg PO DAILY [facility] Last Admin: 09/11/17 11:17 Dose: 80 mg - Objective Vital Signs: Vital Signs Temperature 98.3 F 09/11/17 06:00 Pulse Rate 74 09/11/17 06:00 Respiratory Rate 16 09/11/17 06:00 Blood Pressure 106/54 09/11/17 06:00 O2 Sat by Pulse Oximetry (%) 98 09/10/17 22:00 Constitutional: Yes: No Distress, Calm Cardiovascular: Yes: Regular Rate and Rhythm, S1, S2 Respiratory: Yes: Regular, Other (decreased BS on right side, 1/3 way up from the base). No: Rhonchi Gastrointestinal: Yes: Normal Bowel Sounds, Soft. No: Tenderness Edema: No Neurological: Yes: Alert, Oriented Labs: CBC, BMP 09/11/17 06:06 09/11/17 06:06 INR, PTT INR 1.26 (0.82-1.09) H 09/10/17 07:40 Problem List - Problems (1) Pneumonia Code(s): J18.9 - PNEUMONIA, UNSPECIFIED ORGANISM Qualifiers: Pneumonia type: due to unspecified organism Laterality: unspecified laterality Lung location: unspecified part of lung Qualified Code(s): J18.9 - Pneumonia, unspecified organism (2) Pleural effusion Code(s): J90 - PLEURAL EFFUSION, NOT ELSEWHERE CLASSIFIED (3) CLL (chronic lymphocytic leukemia) Code(s): C91.10 - CHRONIC LYMPHOCYTIC LEUK OF B-CELL TYPE NOT ACHIEVE REMIS (4) Paroxysmal atrial fibrillation Code(s): I48.0 - PAROXYSMAL ATRIAL FIBRILLATION (5) Anemia Code(s): D64.9 - ANEMIA, UNSPECIFIED Assessment/Plan To f/u pleural fluid labs Cont. Ceftriaxone IV Pulmonary consult and f/u appreciated. AM labs
[2017-09-11] MEDS: RIVAROXABAN 20 MG TABLET PO SCH (17:52)
[2017-09-11] MEDS: ERYTHROMYCIN 0.5% OPHTHALMIC OINTMENT 3.5 GM TUBE OD SCH (21:24)
[2017-09-12 07:13] LABS: HEMATOCRIT 29.4 % (35.4-49); HEMOGLOBIN 9.9 GM/dL (11.7-16.9); MCH 31.8 pg (25.7-33.7); MCHC 33.5 g/dl (32.0-35.9); MEAN CELL VOLUME 94.9 fl (80-96); MEAN PLT VOLUME 6.9 fl (7.5-11.1); PLATELET COUNT 286 K/MM3 (134-434); RDW 18.2 % (11.9-15.9); WHITE BLOOD COUNT 24.2 K/mm3 (4.0-10.0)
[2017-09-12 07:47] LABS: ALBUMIN 2.5 g/dl (3.4-5.0); ANION GAP 5 (8-16); BLOOD UREA NITROGEN 22 mg/dL (7-18); CALCIUM 8.4 mg/dL (8.5-10.1); CHLORIDE 105 mmol/L (98-107); CO2 28 mmol/L (21-32); CREATININE 0.5 mg/dL (0.7-1.3); GLUCOSE,RANDOM 93 mg/dL (74-106); POTASSIUM 4.3 mmol/L (3.5-5.1); SGOT/AST 16 U/L (15-37); SGPT/ALT 17 U/L (12-78); SODIUM 138 mmol/L (136-145)
[2017-09-12 07:49] LABS: ALK PHOS 89 U/L (45-117); BILIRUBIN,TOTAL 0.3 mg/dL (0.2-1.0)
[2017-09-12] MEDS ORDERED: DEXTROSE 5%-WATER - 50 ML IVPB ONE (10:25)
[2017-09-12] MEDS ORDERED: cefTRIAXone SODIUM 1 GM VIAL ONE (10:25)
[2017-09-12] MEDS: RAMIPRIL 2.5 MG CAPSULE (FP) PO SCH (10:28)
[2017-09-12] MEDS: CEFTRIAXONE 1 GM in DEXTROSE 5%-WATER - 50 ML IVPB SCH (10:28)
[2017-09-12] MEDS: SOTALOL HCL 80 MG TABLET (FP) PO SCH (10:28)
--- NOTE | 2017-09-12 11:07 | PN ---
Progress Note (short form) - Note Progress Note: PULMONARY Denies shortness of breath. +nonproductive cough. No fevers or chills. Vital Signs Period Temp Pulse Resp BP Sys/Marcum Pulse Ox Last 24 Hr 97.4 F-98.1 F 73-75 20-20 113-120/62-80 98 Gen: NAD at rest Heart: irregular Lung: decreased breath sounds right base Abd: soft, nontender Ext: no edema CBC, BMP 09/12/17 06:30 09/12/17 06:30 Active Medications Acetaminophen (Tylenol -) 650 mg PO Q6H PRN PRN Reason: FEVER Last Admin: 09/09/17 21:48 Dose: 650 mg Erythromycin (Erythromycin 0.5% Eye Ointment) 1 applic OD HS [facility] Last Admin: 09/11/17 21:24 Dose: 1 applic Ceftriaxone Sodium 1 gm/ (Dextrose) 50 mls @ 100 mls/hr IVPB DAILY [facility]; Protocol Last Admin: 09/12/17 10:28 Dose: 100 mls/hr Ramipril (Altace -) 2.5 mg PO DAILY [facility] Last Admin: 09/12/17 10:28 Dose: 2.5 mg Rivaroxaban (Xarelto -) 20 mg PO DAILY@1800 [facility] Last Admin: 09/11/17 17:52 Dose: 20 mg Sotalol HCl (Betapace -) 80 mg PO DAILY [facility] Last Admin: 09/12/17 10:28 Dose: 80 mg A/P Right Pleural Effusion s/p thoracentesis - exudate Atrial Fibrillation CLL Anemia COPD - f/u pleural fluid cytology, cultures - on empiric antibiotics - rate controlled - continue anticoagulation - DVT prophylaxis - pleural fluid studies can be followed up as outpt
[2017-09-12] MEDS ORDERED: PT OWN MED DRAWER 7, Y5N ONE ×2 (17:57→21:56)
[2017-09-12] MEDS: RIVAROXABAN 20 MG TABLET PO SCH (17:59)
--- NOTE | 2017-09-12 18:55 | PN ---
Progress Note, Physician History of Present Illness: Pt's breathing is better than at admission. Pt still cough and brings up greenish sputum. Pt w/o fever, SOB, CP, palpitations, abd pain. Pt is s/p thoracentesis on 09/10/17 - Current Medication List Current Medications: Active Medications Acetaminophen (Tylenol -) 650 mg PO Q6H PRN PRN Reason: FEVER Last Admin: 09/09/17 21:48 Dose: 650 mg Erythromycin (Erythromycin 0.5% Eye Ointment) 1 applic OD HS [facility] Last Admin: 09/11/17 21:24 Dose: 1 applic Ceftriaxone Sodium 1 gm/ (Dextrose) 50 mls @ 100 mls/hr IVPB DAILY [facility]; Protocol Last Admin: 09/12/17 10:28 Dose: 100 mls/hr Ramipril (Altace -) 2.5 mg PO DAILY [facility] Last Admin: 09/12/17 10:28 Dose: 2.5 mg Rivaroxaban (Xarelto -) 20 mg PO DAILY@1800 [facility] Last Admin: 09/12/17 17:59 Dose: 20 mg Sotalol HCl (Betapace -) 80 mg PO DAILY [facility] Last Admin: 09/12/17 10:28 Dose: 80 mg - Objective Vital Signs: Vital Signs Temperature 98.4 F 09/12/17 09:00 Pulse Rate 82 09/12/17 09:00 Respiratory Rate 19 09/12/17 09:00 Blood Pressure 118/59 09/12/17 09:00 O2 Sat by Pulse Oximetry (%) 97 09/12/17 09:00 Constitutional: Yes: No Distress, Calm Cardiovascular: Yes: Pulse Irregular, S1, S2 Respiratory: Yes: Regular, Rhonchi (diminished), Other ( BS at bases, R >> L) Gastrointestinal: Yes: Normal Bowel Sounds, Soft. No: Tenderness Edema: No Neurological: Yes: Alert, Oriented Labs: CBC, BMP 09/12/17 06:30 09/12/17 06:30 INR, PTT INR 1.26 (0.82-1.09) H 09/10/17 07:40 Problem List - Problems (1) Pneumonia Code(s): J18.9 - PNEUMONIA, UNSPECIFIED ORGANISM Qualifiers: Pneumonia type: due to unspecified organism Laterality: unspecified laterality Lung location: unspecified part of lung Qualified Code(s): J18.9 - Pneumonia, unspecified organism (2) Pleural effusion Code(s): J90 - PLEURAL EFFUSION, NOT ELSEWHERE CLASSIFIED (3) CLL (chronic lymphocytic leukemia) Code(s): C91.10 - CHRONIC LYMPHOCYTIC LEUK OF B-CELL TYPE NOT ACHIEVE REMIS (4) Paroxysmal atrial fibrillation Code(s): I48.0 - PAROXYSMAL ATRIAL FIBRILLATION (5) Anemia Code(s): D64.9 - ANEMIA, UNSPECIFIED Assessment/Plan To f/u pleural fluid labs Cont. Ceftriaxone IV Pulmonary consult and f/u appreciated. AM labs Case was d/w pt's nurse (Lana). Check pre and post in AM.
[2017-09-12] MEDS: ERYTHROMYCIN 0.5% OPHTHALMIC OINTMENT 3.5 GM TUBE OD SCH (22:00)
[2017-09-13 08:02] VITALS: BP 127/65; TEMP 98
--- NOTE | 2017-09-13 09:06 | PATH ---
Cytology Non-Gynecological Report Patient Name: GOLDIE DIAZ [facility]. Rec. #: [id number] /Age/Gender: 1935 (Age: 82) / M Account: [id number] Location: [address] [place] [address] Taken: 09/10/2017 Received: 09/11/2017 Reported: 09/13/2017 Physicians: Jeyson Ospina M.D. Specimen(s) Received A: THORACENTESIS RIGHT CHEST FLUID B: THORACENTESIS RIGHT CHEST FLUID Clinical History Pleural effusion Final Diagnosis PLEURAL FLUID, THORACENTESIS: SATISFACTORY FOR EVALUATION. LYMPHOCYTIC PLEURAL EFFUSION. SMALL LYMPHOID POPULATION CELLS PRESENT. Comment: No carcinoma identified. Cytologic findings are similar to prior cytology specimen (C18-3, with immunohistochemistry studies). In view of the patient's history of CLL, suggest clinical correlation and further work-up including flow cytometry study if clinically indicated. Electronically Signed Bruno Blanco M.D. Gross Description A. Approximately 50cc of yellow fluid received fixed in 50% alcohol. Two cytofunnels and one cellblock prepared. B. Approximately 1000cc of yellow fluid received fresh. Two cytofunnels and one cellblock prepared.
[2017-09-13] MEDS ORDERED: cefTRIAXone SODIUM 1 GM VIAL ONE ×2 (09:26→09:58)
[2017-09-13] MEDS ORDERED: DEXTROSE 5%-WATER - 50 ML IVPB ONE ×2 (09:27→09:58)
[2017-09-13 09:28] VITALS: PULSE 102
[2017-09-13] MEDS: CEFTRIAXONE 1 GM in DEXTROSE 5%-WATER - 50 ML IVPB SCH (10:01)
[2017-09-13] MEDS: RAMIPRIL 2.5 MG CAPSULE (FP) PO SCH (10:01)
[2017-09-13] MEDS: SOTALOL HCL 80 MG TABLET (FP) PO SCH (10:01)
--- NOTE | 2017-09-13 10:45 | PN ---
Progress Note, Physician History of Present Illness: Pt still cough and brings up greenish sputum. Pt w/o fever, SOB, CP, palpitations, abd pain. Pt is s/p thoracentesis on 09/10/17 - Current Medication List Current Medications: Active Medications Acetaminophen (Tylenol -) 650 mg PO Q6H PRN PRN Reason: FEVER Last Admin: 09/09/17 21:48 Dose: 650 mg Erythromycin (Erythromycin 0.5% Eye Ointment) 1 applic OD HS [facility] Last Admin: 09/12/17 22:00 Dose: Not Given Ceftriaxone Sodium 1 gm/ (Dextrose) 50 mls @ 100 mls/hr IVPB DAILY [facility]; Protocol Last Admin: 09/13/17 10:01 Dose: 100 mls/hr Ramipril (Altace -) 2.5 mg PO DAILY [facility] Last Admin: 09/13/17 10:01 Dose: 2.5 mg Rivaroxaban (Xarelto -) 20 mg PO DAILY@1800 [facility] Last Admin: 09/12/17 17:59 Dose: 20 mg Sotalol HCl (Betapace -) 80 mg PO DAILY [facility] Last Admin: 09/13/17 10:01 Dose: 80 mg - Objective Vital Signs: Vital Signs Temperature 98.0 F 09/13/17 08:01 Pulse Rate 102 H 09/13/17 09:27 Respiratory Rate 18 09/13/17 08:01 Blood Pressure 127/65 09/13/17 08:01 O2 Sat by Pulse Oximetry (%) 95 09/13/17 09:27 Constitutional: Yes: No Distress, Calm Cardiovascular: Yes: Pulse Irregular, S1, S2 Respiratory: Yes: Regular, Rhonchi (minimal, scattered), Other (decreased BS at right base and 1/3 up). No: Wheezes Gastrointestinal: Yes: Normal Bowel Sounds, Soft. No: Tenderness Edema: No Neurological: Yes: Alert, Oriented Labs: CBC, BMP 09/12/17 06:30 09/12/17 06:30 INR, PTT INR 1.26 (0.82-1.09) H 09/10/17 07:40 Problem List - Problems (1) Pneumonia Code(s): J18.9 - PNEUMONIA, UNSPECIFIED ORGANISM Qualifiers: Pneumonia type: due to unspecified organism Laterality: unspecified laterality Lung location: unspecified part of lung Qualified Code(s): J18.9 - Pneumonia, unspecified organism (2) Pleural effusion Code(s): J90 - PLEURAL EFFUSION, NOT ELSEWHERE CLASSIFIED (3) CLL (chronic lymphocytic leukemia) Code(s): C91.10 - CHRONIC LYMPHOCYTIC LEUK OF B-CELL TYPE NOT ACHIEVE REMIS (4) Paroxysmal atrial fibrillation Code(s): I48.0 - PAROXYSMAL ATRIAL FIBRILLATION (5) Anemia Code(s): D64.9 - ANEMIA, UNSPECIFIED Assessment/Plan To f/u pleural fluid labs Cont. Ceftriaxone IV Pulmonary consult and f/u appreciated. Case was d/w pt's nurse (Sheri). Check pre and post noticed.
--- NOTE | 2017-09-13 12:21 | PN ---
Progress Note (short form) - Note Progress Note: PULMONARY Denies shortness of breath. +nonproductive cough. No fevers or chills. VSS Gen: NAD at rest Heart: irregular Lung: decreased breath sounds right base Abd: soft, nontender Ext: no edema labs/meds/images/notes reviewed A/P Right Pleural Effusion s/p thoracentesis - exudate lymphocytic predominate Atrial Fibrillation CLL Anemia COPD - on empiric antibiotics - rate controlled - continue anticoagulation - DVT prophylaxis - pleural fluid studies can be followed up as outpt [facility] Problem List - Problems (1) Anemia Code(s): D64.9 - ANEMIA, UNSPECIFIED (2) Atrial fibrillation Code(s): I48.91 - UNSPECIFIED ATRIAL FIBRILLATION (3) CLL (chronic lymphocytic leukemia) Code(s): C91.10 - CHRONIC LYMPHOCYTIC LEUK OF B-CELL TYPE NOT ACHIEVE REMIS (4) DVT (deep venous thrombosis) Code(s): I82.409 - ACUTE EMBOLISM AND THOMBOS UNSP DEEP VN UNSP LOWER EXTREMITY Qualifiers: DVT location: lower extremity Affected thrombotic vein of extremity: popliteal Chronicity: chronic Laterality: right Qualified Code(s): I82.531 - Chronic embolism and thrombosis of right popliteal vein (5) Pleural effusion Code(s): J90 - PLEURAL EFFUSION, NOT ELSEWHERE CLASSIFIED (6) S/P thoracentesis Code(s): Z98.890 - OTHER SPECIFIED POSTPROCEDURAL STATES (7) SOB (shortness of breath) Code(s): R06.02 - SHORTNESS OF BREATH
--- NOTE | 2017-09-13 14:36 | DS ---
Physical Examination Vital Signs: Vital Signs Temperature 98.0 F 09/13/17 08:01 Pulse Rate 102 H 09/13/17 09:27 Respiratory Rate 18 09/13/17 08:01 Blood Pressure 127/65 09/13/17 08:01 O2 Sat by Pulse Oximetry (%) 95 09/13/17 09:27 Findings/Remarks: See today Progress Note for ROS, PE. Case was d/w Dr. Bar; pt can be DC'ed home today on PO abtx. Labs: CBC, BMP 09/12/17 06:30 09/12/17 06:30 Discharge Summary Reason For Visit: PNEUMONIA Current Active Problems Pneumonia (Acute) Procedures: Principal: Thoracentesis. CXR Hospital Course: Pt with Hx/o COPD, right side Pleural effusion, developed cough and was treated with PO abtx, as outpatient, by Dr. Bar; pt'c cough got worse and was referred to ER. Pt was admitted to hospital and started on IV Ceftriaxone. Pt underwent right side thoracentesis. Pt's condition improved. Pt to be DC'ed home on PO abtx. Condition: Improved - Instructions Diet, Activity, Other Instructions: Diet: low salt. Avoid strenuous activity. Referrals: Jeyson Ospina MD [Primary Care Provider] - (within one week) Kai Bar MD [Staff Physician] - (in 1-2 weeks) Disposition: HOME - Home Medications Comprehensive Discharge Medication List: Ambulatory Orders
[2017-09-13] MEDS ORDERED: PT OWN MED DRAWER 7, Y5N ONE (17:32)
[2017-09-13] MEDS: RIVAROXABAN 20 MG TABLET PO SCH (17:39)
== END 2017-09-13 18:17 | disposition home or self-care (01) | DRG 186 ==
LOC: JER 07:37 → JERBED 09:58 → J6S 11:38
PROVIDERS: ADMIT Specialist; ATTEND Specialist
PROC: 0W993ZX Drainage of Right Pleural Cavity, Percutaneous Approach, Diagnostic (ICD-10-PCS; principal; 2017-09-10)
DX: J90 Pleural effusion, not elsewhere classified (principal); J18.9 Pneumonia, unspecified organism; C91.10 Chronic lymphocytic leukemia of B-cell type not having achieved remission; I82.531 Chronic embolism and thrombosis of right popliteal vein; I48.0 Paroxysmal atrial fibrillation; J44.9 Chronic obstructive pulmonary disease, unspecified; I07.1 Rheumatic tricuspid insufficiency; D64.9 Anemia, unspecified; Z79.01 Long term (current) use of anticoagulants; I10 Essential (primary) hypertension; E78.00 Pure hypercholesterolemia, unspecified; H91.8X3 Other specified hearing loss, bilateral
CPT/HCPCS: 36415; 71045-TC-FY; 76942; 80053; 81003; 81015; 82042; 82150; 82803; 82945; 83605; 83615; 84157; 84484; 85025; 85027; 85610; 85730; 87040; 87070; 87075; 87086; 87102; 87116; 87205; 87206; 87210; 88108; 88305-TC; 89051; 93005; 93010; 94010; 94761; 99283-25; J0131; J7030